=== PATIENT | male | born 1940 | race Caucasian/White ===

== ENCOUNTER 2021-10-07 12:19 | Outpatient (CLI) | payer MEDICARE, OTHER, SELFPAY ==
--- NOTE | 2021-10-07 12:31 | CT_ITS ---
WS: [id number] CTA OF THE CHEST WITH PULMONARY EMBOLISM PROTOCOL TECHNIQUE: High-resolution contrast enhanced CTA of the chest with coronal and sagittal reformatted i mages with pulmonary embolism protocol. MIP images are also reviewed. CLINICAL INFORMATION: 2019 NOVEL CORONAVIRUS DZ/COUGH/ELEVATED D DIMER COMPARISON: None. DLP: 574.[address] scans at [facility] use at least one of these dose optimization techniques: automated e xposure control; mA and/or kV adjustment per patient size (includes targeted exams where dose is matc hed to clinical indication); or iterative reconstruction. FINDINGS: Proximal main pulmonary arteries are normal. Normal segmental and subsegmental pulmonary arteries. No evidence of pulmonary embolus. No evidence of pulmonary embolus. Normal caliber thoracic aorta. Aort ic calcification. Sternotomy. CABG. Moderate chronic emphysematous changes. Patchy subpleural infiltr ates in both upper lower lobes right greater than left suspicious for COVID 19 Pneumonia pneumonia gi shanthi clinical history. No significant pleural fluid. No mediastinal or hilar lymphadenopathy. Small esophageal hiatal hernia. 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 Hypertrophic changes thoracic spine with ankylosis. CT/CT angio chest PE protcl [id number] IMPRESSION: 1. Proximal main pulmonary arteries are normal. No evidence of pulmonary embol us. 2. Bilateral patchy right greater than left subpleural infiltrates suspicious for COVID 19 Pneumonia given clinical history. 3. No significant pleural fluid. 4. Prior sternotomy with CABG. 5. Left adrenal fatty lesion compatible with myelolipoma measuring 3.1 CM. 6. Small esophageal hiatal hernia.
[2021-10-07 14:11] LABS: Blood Urea Nitrogen 30 mg/dL (8-23)
[2021-10-07] MEDS: iodixanol 320 mg/mL 100mL Btl IV (14:25)
== END 2021-10-07 12:20 | disposition home or self-care (01) ==
LOC: RAD 12:24
PROVIDERS: Visit Provider Physician Assistant Medical
DX: U07.1 COVID-19 (principal); R05.9 Cough, unspecified; R79.89 Other specified abnormal findings of blood chemistry; K44.9 Diaphragmatic hernia without obstruction or gangrene; Z95.1 Presence of aortocoronary bypass graft
CPT/HCPCS: 36415; 71275; 82565; 84520

== ENCOUNTER 2021-12-31 08:51 | Outpatient (CLI) | payer MEDICARE, OTHER, SELFPAY ==
--- NOTE | 2021-12-31 09:06 | MM_ITS ---
WS: [id number] DIAGNOSTIC BILATERAL DIGITAL MAMMOGRAM WITH CAD Bilateral breast ultrasound, limited. HISTORY: RT BREAST LUMP, 81-year-old male. COMPARISON: None available. TECHNIQUE: Bilateral craniocaudad, mediolateral oblique, and mediolateral views are submitted. Spot c ompression LEFT MLO and RIGHT CC. Computer aided detection utilized. Breast composition: The breasts are almost entirely fatty. Increased density posterior to the RIGHT n ipple most typical for gynecomastia. Best seen on the LEFT MLO projection is an area of spiculation a nd increased density just posterior to the LEFT nipple. This is probably an additional area of gyneco mastia. No suspicious calcifications. No nipple retraction. Bilateral breast ultrasound, limited. RIGHT breast: Dendritic like extensions and hypoechoic mass posterior to the RIGHT nipple corresponds to the mammographic and palpable abnormality. Mild increased vascularity centrally. Hypoechoic area measures 1.8 x 2.8 x 0.8 cm. LEFT breast: Smaller similar hypoechoic area with fingerlike extensions posterior to the LEFT nipple measures 1.2 x 1.2 x 0.7 cm. No increased vascularity. MM/[place] [id number] IMPRESSION: BI-RADS: 2-Benign FOLLOW UP: See Report Imaging findings are most consistent with bilateral gynecomastia, RIGHT greater than LEFT.
== END 2021-12-31 08:52 | disposition home or self-care (01) ==
PROVIDERS: Visit Provider Family Medicine
DX: N63.10 Unspecified lump in the right breast, unspecified quadrant (principal)
CPT/HCPCS: 76642; 77066

== ENCOUNTER 2022-03-23 19:44 | Emergency (ER) | payer MEDICARE, OTHER, SELFPAY ==
--- NOTE | 2022-03-23 19:51 | XRR_ITS ---
PROCEDURE INFORMATION: Exam: XR Chest Exam date and time: 03/23/2022 9:45 PM Age: 82 years old Clinical indication: Sternal or substernal pain; Prior surgery; Surgery date: 6+ months; Surgery type: Quadruple bypass; Additional info: Cp TECHNIQUE: Imaging protocol: XR of the chest. Views: 1 view. COMPARISON: CT angio chest PE protcl [id number] 10/07/2021 2:21 PM FINDINGS: Lungs: Visualized portions of the lungs are clear. Pleural spaces: Unremarkable. No pleural effusion. No pneumothorax. Heart/Mediastinum: Heart is within normal limits of size. Bones/joints: Sternotomy wires and mediastinal surgical clips are present, consistent with previous coronary arterial bypass grafting. XR/XR chest 1V portable [id number] IMPRESSION: No acute infiltrate.
[2022-03-23 19:54] VITALS: BP 125/80; PULSE 69; RESP 18; TEMP 36.5; O2SAT 98; BMI 27.2
--- NOTE | 2022-03-23 20:35 | PC.NURSE ---
upset because pt did not go straight back to the room explained to that we currently have no room the doctor is aware of the pt has looked at the EKG ordered lab that has been drawn now waiting on room
[2022-03-23 20:43] LABS: Basophils % 0.2 %; Eosinophils # 0.1 10^3/uL (0.0-0.8); Eosinophils % 1.3 %; Hematocrit 49.6 % (42.0-52.0); Hemoglobin 16.7 g/dL (11.7-16.6); Lymphocytes # 0.9 10^3/uL (0.8-4.8); Lymphocytes % 10.5 %; Mean Corpuscular HGB Conc 33.7 g/dL (30.0-36.0); Mean Corpuscular Hemoglobin 31.6 pg (28.0-34.0); Mean Corpuscular Volume 93.9 fl (80-94); Mean Platelet Volume 10.1 fL (7.4-10.4); Monocytes # 0.6 10^3/uL (0.2-0.9); Monocytes % 7.6 %; Neutrophils % 79.9 %; Nucleated Red Blood Cells % 0 %; Platelet Count 220 10^3/cmm (130-400); Red Blood Count 5.28 10^6/uL (4.1-5.3); Red Cell Distribution Width 13.6 % (12.1-15.1); White Blood Count 8.3 10^3/uL (4.0-10.0)
[2022-03-23 20:50] LABS: INR 1.06 (0.8-1.2)
[2022-03-23 21:06] LABS: Alanine Aminotransferase 37 U/L (0-41); Albumin Level 4.2 g/dL (3.5-5.2); Alkaline Phosphatase 53 IU/L (40-130); Anion Gap 15.8 (5-19); Aspartate Amino Transferase 22 U/L (0-40); Blood Urea Nitrogen 24 mg/dL (8-23); Calcium 10.6 mg/dL (8.5-10.5); Carbon Dioxide 18 mmol/L (22-29); Chloride 108 mmol/L (98-107); Creatine Phosphokinase 25 U/L (39-308); Globulin 2.8 g/dL (1.3-4.6); Glucose 139 mg/dL (65-115); NT Pro B Type Natriuretic Pept 88 pg/mL (0-450); Osmolality Calculated 292 mOsm/kg (285-295); Potassium 3.8 mmol/L (3.5-5.1); Sodium 138 mmol/L (136-145); Total Bilirubin 0.6 mg/dL (0.15-1.2)
--- NOTE | 2022-03-23 21:20 | ED_ITS ---
Documented by User: SAMY Quezada 03/24/22 03:42 HPI - Chest Pain General: Chief Complaint: Chest Pain Stated Complaint: chest pains Time Seen by Provider: 03/23/22 21:02 History of Present Illness: Patient is an 82-year-old male who comes to the ED with chest pain. Patient has an extensive heart history and has had 13 stents placed and approximately a year and a half ago had a quadruple bypass done. His chest pain started this morning when he got up to go to the bathroom. His chest pain improves when he is at rest but anytime he gets up and ambulates his chest pain comes back. He took 2 doses of nitro while at home today and it did improve his chest pain. His chest pain located on the left side and he rates it a 5 out of 10 currently. Patient is on 2 blood thinners and takes a daily baby aspirin. Endorses some shortness of breath. Associated symptoms: Reports dyspnea; Deny abdominal pain, fever(s), nausea, palpitations or vomiting Review of Systems Const: Denies: fever(s), chills or fatigue Eyes: Denies: change in vision or eye discomfort ENMT: Denies: throat pain, odynophagia, nasal discharge or nasal congestion Card: Reports: chest pain; Denies: palpitations, edema, swelling of feet/ankles, dyspnea on exertion or orthopnea Resp: Reports: dyspnea; Denies: productive cough or non-productive cough GI: Denies: abdominal pain, nausea, vomiting, diarrhea, constipation or hematochezia : Denies: flank pain, difficulty urinating, dysuria or hematuria Musc: Denies: neck pain, back pain or extremity swelling Skin/Breast: Denies: rash or new lesions Neuro: Denies: headache(s), numbness in extremities or weakness in extremities PFS ED PFSH: Medical History (Updated 03/24/22 @ 00:25 by Migue Forte DO) ACS (acute coronary syndrome) Surgical History (Updated 03/23/22 @ 21:25 by SAMY Quezada) H/O heart artery stent History of quadruple bypass Physical Exam Const: COMMON NORMALS: patient oriented x3 and alert GENERAL APPEARANCE: cooperative HENMT: COMMON NORMALS: normocephalic HEAD & SCALP: normocephalic MOUTH: Normal oral and palatal mucosa present THROAT: posterior oropharynx normal and uvula midline Eye: COMMON NORMALS: Equal, round and reactive pupils present PUPIL: Yes Equal, round and reactive pupils present Neck/C-Spine: COMMON NORMALS: supple GENERAL: Yes normal visual inspection Resp: COMMON NORMALS: normal respiratory effort, No retractions, No use of accessory muscles and clear to auscultation bilaterally AUSCULTATION: clear to auscultation bilaterally Cardio: COMMON NORMALS: regular rate, regular rhythm, S1 normal heart sound present, S2 normal heart sound present, No gallops present (Cardio), No clicks present (Cardio), No murmurs present (Cardio) and Peripheral pulses 2+ throughout RATE: regular rate RHYTHM: regular rhythm HEART SOUNDS: S1 normal heart sound present and S2 normal heart sound present PERIPHERAL PULSES: Peripheral pulses 2+ throughout GI: COMMON NORMALS: Normal to inspection, nondistended, normoactive bowel sounds present, Soft to palpation, non-tender and no masses PALPATION: Yes Soft to palpation : COMMON NORMALS: Yes no CVA tenderness BLADDER/KIDNEY EXAM: Yes no CVA tenderness Back/Pelvis: COMMON NORMALS: no CVA tenderness Extremity: COMMON NORMALS: normal to inspection and no pedal edema Neuro: COMMON NORMALS: patient oriented x3 and moves all extremities SENSORIUM/ORIENTATION: Yes alert Skin: GENERAL SKIN EXAM: dry skin Course Vital Signs: Vital signs: Vital Signs Temperature 97.7 F 03/23/22 19:54 Pulse Rate 63 03/24/22 01:00 Respiratory Rate 16 03/24/22 01:00 Blood Pressure 137/79 03/24/22 01:00 Pulse Oximetry 97 03/24/22 01:00 MDM - Chest Pain Lab Data I reviewed the patient's lab results. : 03/23/22 20:22 03/23/22 20:22 Radiology Impressions Chest X-Ray 03/23/22 19:51 IMPRESSION: No acute infiltrate. Laboratory Results WBC 8.3 10^3/uL (4.0-10.0) 03/23/22 20:22 RBC 5.28 10^6/uL (4.1-5.3) 03/23/22 20:22 Hgb 16.7 g/dL (11.7-16.6) H 03/23/22 20:22 Hct 49.6 % (42.0-52.0) 03/23/22: MCV 93.9 fl (80-94) 03/23/22: MCH 31.6 pg (28.0-34.0) 03/23/22: MCHC 33.7 g/dL (30.0-36.0) 03/23/22 RDW 13.6 % (12.1-15.1) 03/23/22: Plt Count 220 10^3/cmm (130-400) 03/23/22 MPV 10.1 fL (7.4-10.4) 03/23/22: Neut % (Auto) 79.9 % 03/23/22: Lymph % (Auto) 10.5 % 03/23/22 Colbert % (Auto) 7.6 % 03/23/22 Eos % (Auto) 1.3 % 03/23/22 Baso % (Auto) 0.2 % 03/23/22 Neut # (Auto) 6.60 10^3/uL (1.8-7.7) 03/23/22 Lymph # (Auto) 0.9 10^3/uL (0.8-4.8) 03/23/22: Colbert # (Auto) 0.6 10^3/uL (0.2-0.9) 03/23/22 Eos # (Auto) 0.1 10^3/uL (0.0-0.8) 03/23/22 Baso # (Auto) 0.0 10^3/uL (0.0-0.1) 03/23/22 Nucleated RBC % (auto) 0 % 03/23/22 Nucleated RBCs # 0.0 /100WBC 03/23/22 PT 14.10 SECONDS (12.1-14.9) 03/23/22 INR 1.06 (0.8-1.2) 03/23/22 APTT 28.0 SECONDS (23.9-36.7) 03/23/22: Sodium 138 mmol/L (136-145) 03/23/22 Potassium 3.8 mmol/L (3.5-5.1) 03/23/22 20: Chloride 108 mmol/L (98-107) H 03/23/22 20: Carbon Dioxide 18 mmol/L (22-29) L 03/23/22 20: Anion Gap 15.8 (5-19) 03/23/22 20: BUN 24 mg/dL (8-23) H 03/23/22 20: Creatinine 1.5 mg/dL (0.7-1.2) H 03/23/22 20: GFR Calculation Not Reportable 03/23/22 20: Glucose 139 mg/dL (65-115) H 03/23/22 20: Calculated Osmolality 292 mOsm/kg (285-295) 03/23/22: Calcium 10.6 mg/dL (8.5-10.5) H 03/23/22 20: Total Bilirubin 0.6 mg/dL (0.15-1.2) 03/23/22: AST 22 U/L (0-40) 03/23/22: ALT 37 U/L (0-41) 03/23/22 20:22 Alkaline Phosphatase 53 IU/L (40-130) 03/23/22 20: Creatine Kinase 25 U/L (39-308) L 03/23/22 20:22 Troponin T Baseline 13 ng/L (0-15) 03/23/22 20: Troponin T 120 Minute 13.46 ng/L (0-15) 03/23/22 22:17 Delta Troponin T 0.46 ABS# (0-10) 03/23/22 22:17 NT-Pro-B Natriuret Pep 88 pg/mL (0-450) 03/23/22 20:22 Total Protein 7.0 g/dL (6.6-8.7) 03/23/22 20: Albumin 4.2 g/dL (3.5-5.2) 03/23/22: Globulin 2.8 g/dL (1.3-4.6) 03/23/22 20:22 Discharge Plan Discharge Patient Disposition: Home Clinical Impression: Chest pain, Unstable angina pectoris Prescriptions: New isosorbide mononitrate 30 mg tablet extended release 24 hr 30 mg PO BID Qty: 60 0RF Discharge Orders: Discharge ED (Routine); Ordered 03/24/22 Ordered By: Migue Forte Discharge Diet: Advance as tolerated Discharge Activity: Limit activity as instructed Patient Instructions: Angina (ED), Chest Pain (ED) Activity Restrictions/Additional Instructions: Fill your prescription tomorrow as instructed. Return immediately to the ER for any return of chest pain. Return also for shortness of breath, mental status changes, fever, any other concerning symptoms. Check your blood pressure twice daily for the first few days on medication. Call your manager corporate tomorrow, let them know you were seen here, as they may want to see you in clinic. Our briefcase sewer will call as well, to try to make you an appointment and send records. Coding Level of Care Code ED Auto Wheel Alignment Specialist for Chg Fwd Exam Comprehensive Documented by User: Migue Forte DO 03/24/22 03:05 HPI - Chest Pain General: Chief Complaint: Chest Pain Stated Complaint: chest pains Time Seen by Provider: 03/23/22 21:02 REPLACED BY [facility] ED PFSH: Medical History (Updated 03/24/22 @ 00:25 by Migue Forte DO) ACS (acute coronary syndrome) Surgical History (Updated 03/23/22 @ 21:25 by SAMY Quezada) H/O heart artery stent History of quadruple bypass Course Vital Signs: Vital signs: Vital Signs Temperature 97.7 F 03/23/22 19:54 Pulse Rate 63 03/24/22 01:00 Respiratory Rate 16 03/24/22 01:00 Blood Pressure 137/79 03/24/22 01:00 Pulse Oximetry 97 03/24/22 01:00 MDM - Chest Pain Medical Decision Making This patient was originally seen by Mr. Cyndi PA-C.? I agree with his history, evaluation, and treatment. 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 He received a stent to the RCA with 400% occlusion a couple of weeks ago. This was at [facility] in [place]. He had multiple stents, 13 and total he says, and a 4x bypass graft 15 months ago. He has been told that there is no more operative intervention for him coronary disease fernandez. His EKG shows sinus bradycardia with a normal axis. Intervals are normal. Rate is [address] there is no acute ST elevation or depression present. His troponins are negative x2 at 0 and 2 hours. His pain is gone after morphine. He feels a slight pressure in his chest only, which he states that he usually has. By history, this patient could be admitted. He wishes to go home. He is only on 30 mg of isosorbide daily. We will increase his dose to 30 twice a day, as he seems to get pain or pressure in the afternoon more so. He will get 1 dose tonight. He will check his pressure twice daily. He will call his manager corporate in the morning. He will be allowed home. Lab Data : 03/23/22 20:22 03/23/22 20:22 Radiology Impressions Chest X-Ray 03/23/22 19:51 IMPRESSION: No acute infiltrate. Laboratory Results WBC 8.3 10^3/uL (4.0-10.0) 03/23/22 20: RBC 5.28 10^6/uL (4.1-5.3) 03/23/22 20: Hgb 16.7 g/dL (11.7-16.6) H 03/23/22 20:22 Hct 49.6 % (42.0-52.0) 03/23/22 20: MCV 93.9 fl (80-94) 03/23/22: MCH 31.6 pg (28.0-34.0) 03/23/22 20: MCHC 33.7 g/dL (30.0-36.0) 03/23/22 20: RDW 13.6 % (12.1-15.1) 03/23/22 20: Plt Count 220 10^3/cmm (130-400) 03/23/22 20: MPV 10.1 fL (7.4-10.4) 03/23/22 20: Neut % (Auto) 79.9 % 03/23/22 20: Lymph % (Auto) 10.5 % 03/23/22 20:22 Colbert % (Auto) 7.6 % 03/23/22 20:22 Eos % (Auto) 1.3 % 03/23/22 20: Baso % (Auto) 0.2 % 03/23/22 20: Neut # (Auto) 6.60 10^3/uL (1.8-7.7) 03/23/22 20: Lymph # (Auto) 0.9 10^3/uL (0.8-4.8) 03/23/22 20: Colbert # (Auto) 0.6 10^3/uL (0.2-0.9) 03/23/22: Eos # (Auto) 0.1 10^3/uL (0.0-0.8) 03/23/22: Baso # (Auto) 0.0 10^3/uL (0.0-0.1) 03/23/22: Nucleated RBC % (auto) 0 % 03/23/22 Nucleated RBCs # 0.0 /100WBC 03/23/22 20: PT 14.10 SECONDS (12.1-14.9) 03/23/22: INR 1.06 (0.8-1.2) 03/23/22: APTT 28.0 SECONDS (23.9-36.7) 03/23/22 20: Sodium 138 mmol/L (136-145) 03/23/22 20: Potassium 3.8 mmol/L (3.5-5.1) 03/23/22: Chloride 108 mmol/L (98-107) H 03/23/22 20: Carbon Dioxide 18 mmol/L (22-29) L 03/23/22 20: Anion Gap 15.8 (5-19) 03/23/22 20: BUN 24 mg/dL (8-23) H 03/23/22 20: Creatinine 1.5 mg/dL (0.7-1.2) H 03/23/22 20:22 GFR Calculation Not Reportable 03/23/22 20: Glucose 139 mg/dL (65-115) H 03/23/22 20: Calculated Osmolality 292 mOsm/kg (285-295) 03/23/22 20:22 Calcium 10.6 mg/dL (8.5-10.5) H 03/23/22 20:22 Total Bilirubin 0.6 mg/dL (0.15-1.2) 03/23/22 20:22 AST 22 U/L (0-40) 03/23/22 20:22 ALT 37 U/L (0-41) 03/23/22 20:22 Alkaline Phosphatase 53 IU/L (40-130) 03/23/22 20:22 Creatine Kinase 25 U/L (39-308) L 03/23/22 20:22 Troponin T Baseline 13 ng/L (0-15) 03/23/22 20: Troponin T 120 Minute 13.46 ng/L (0-15) 03/23/22 22:17 Delta Troponin T 0.46 ABS# (0-10) 03/23/22 22:17 NT-Pro-B Natriuret Pep 88 pg/mL (0-450) 03/23/22 20: Total Protein 7.0 g/dL (6.6-8.7) 03/23/22 20: Albumin 4.2 g/dL (3.5-5.2) 03/23/22 20: Globulin 2.8 g/dL (1.3-4.6) 03/23/22 20:22 Discharge Plan Discharge Patient Disposition: Home Clinical Impression: Chest pain, Unstable angina pectoris Prescriptions: New isosorbide mononitrate 30 mg tablet extended release 24 hr 30 mg PO BID Qty: 60 0RF Discharge Orders: Discharge ED (Routine); Ordered 03/24/22 Ordered By: Migue Forte Discharge Diet: Advance as tolerated Discharge Activity: Limit activity as instructed Patient Instructions: Angina (ED), Chest Pain (ED) Activity Restrictions/Additional Instructions: Fill your prescription tomorrow as instructed. Return immediately to the ER for any return of chest pain. Return also for shortness of breath, mental status changes, fever, any other concerning symptoms. Check your blood pressure twice daily for the first few days on medication. Call your manager corporate tomorrow, let them know you were seen here, as they may want to see you in clinic. Our briefcase sewer will call as well, to try to make you an appointment and send records. Coding Level of Care Code ED Auto Wheel Alignment Specialist for Catie Fwd Exam Comprehensive
[2022-03-23 21:24] LABS: Troponin(5th) Baseline 13 ng/L (0-15)
[2022-03-23 21:30] VITALS: BP 139/85; PULSE 63; RESP 16; O2SAT 96
[2022-03-23] MEDS: ondansetron 2 mg/ML SDV 2 mL 4 MG IVP (21:31)
[2022-03-23 21:32] VITALS: RESP 16; O2SAT 96
[2022-03-23] MEDS: morphine 4 mg/mL SDV 1 mL IVP (21:32)
--- NOTE | 2022-03-23 21:51 | ECG_ITS ---
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 Measurements Intervals [place] Rate: 55 P: 113 PA: 202 QRS: -19 QRSD: 107 T: 69 QT: 429 QTc: 413 Interpretive Statements SINUS BRADYCARDIA NONSPECIFIC T-WAVE ABNORMALITY No previous ECG available for comparison Electronically Signed On 03-24-2022 17:43:25 CDT by Elvia Robledo M.D. [id number]
[2022-03-23 22:33] VITALS: BP 125/76; PULSE 59; RESP 15; O2SAT 95
[2022-03-23 22:45] LABS: Troponin 5 2HR 13.46 ng/L (0-15)
[2022-03-23 22:46] LABS: Troponin 5 2HR Delta 0.46 ABS# (0-10)
[2022-03-23 23:00] VITALS: BP 127/77; PULSE 57; RESP 14; O2SAT 96
[2022-03-23 23:30] VITALS: BP 123/75; PULSE 60; RESP 14; O2SAT 96
[2022-03-24] VITALS: BP 147/83; PULSE 61; RESP 15; O2SAT 96
[2022-03-24] MEDS: isosorbide mononitrate ER 30 mg Tablet PO (00:40)
[2022-03-24 01:00] VITALS: BP 137/79; PULSE 63; RESP 16; O2SAT 97
--- NOTE | 2022-03-31 13:43 | DCPLANNER ---
microbiology manager called [facility] to ensure that an appointment had been scheduled for patient. microbiology manager was told that patient has an appointment with a [place] regional sales manager for
== END 2022-03-24 00:56 | disposition home or self-care (01) ==
PROVIDERS: Emergency Provider Emergency Medicine
DX: I25.110 Atherosclerotic heart disease of native coronary artery with unstable angina pectoris (principal); Z95.1 Presence of aortocoronary bypass graft; Z95.5 Presence of coronary angioplasty implant and graft
CPT/HCPCS: 36415; 71045; 80053; 82550; 83880; 84484; 85025; 85610; 85730; 93005; 96374; 96375; 99284; J2270; J2405

== ENCOUNTER 2022-04-06 19:19 | Emergency (ER) | payer MEDICARE, OTHER, SELFPAY ==
--- NOTE | 2022-04-06 19:24 | XRR_ITS ---
PROCEDURE INFORMATION: Exam: XR Chest Exam date and time: 04/06/2022 7:55 PM Age: 82 years old Clinical indication: Pain; Left-sided; Prior surgery; Surgery date: 6+ months; Surgery type: Open heart; Additional info: Cp TECHNIQUE: Imaging protocol: XR of the chest. Views: 1 view. COMPARISON: CR (CHEST, ) 03/23/2022 9:45 PM FINDINGS: Lungs: Minimal curvilinear densities at the lung bases are most consistent with scarring and/or atelectasis. Pleural spaces: Unremarkable. No pleural effusion. No pneumothorax. Heart/Mediastinum: Unremarkable. No cardiomegaly. Bones/joints: There are posterior sternotomy changes and postoperative changes overlying the mediastinum. XR/XR chest 1V portable [id number] IMPRESSION: No evidence for acute cardiopulmonary disease.Non acute findings as described above.
--- NOTE | 2022-04-06 19:27 | ECG_ITS ---
[facility] Test Date: 2022-04-06 Pat Name: Jesus Farias Department: Room: Gender: Male Line Server: : 1940 Requested By: Migue Bishop Order Number: [id number] Lourdes MD: Sajan Gilliland M.D. Measurements Intervals [place] Rate: 72 P: -2 WA: 180 QRS: -28 QRSD: 104 T: 31 QT: 383 QTc: 420 Interpretive Statements SINUS RHYTHM BORDERLINE LEFT AXIS DEVIATION [QRS AXIS < -20] Compared to ECG 03/23/2022 22:51:15 Sinus bradycardia no longer present T-wave abnormality no longer present Electronically Signed On 04-07-2022 19:43:06 CDT by Sajan Gilliland M.D. [id number]
[2022-04-06 19:30] VITALS: BP 151/95; RESP 22; TEMP 36.7; O2SAT 96; BMI 25.8
[2022-04-06 19:37] LABS: Basophils % 0.4 %; Eosinophils # 0.3 10^3/uL (0.0-0.8); Eosinophils % 3.2 %; Hematocrit 48.1 % (42.0-52.0); Hemoglobin 16.8 g/dL (11.7-16.6); Lymphocytes # 0.8 10^3/uL (0.8-4.8); Mean Corpuscular HGB Conc 34.9 g/dL (30.0-36.0); Mean Corpuscular Volume 91.6 fl (80-94); Mean Platelet Volume 10.3 fL (7.4-10.4); Monocytes # 0.7 10^3/uL (0.2-0.9); Monocytes % 8.2 %; Neutrophils # 6.48 10^3/uL (1.8-7.7); Nucleated Red Blood Cells % 0 %; Platelet Count 176 10^3/cmm (130-400); Red Blood Count 5.25 10^6/uL (4.1-5.3); Red Cell Distribution Width 13.4 % (12.1-15.1); White Blood Count 8.3 10^3/uL (4.0-10.0)
[2022-04-06 19:45] VITALS: RESP 16; O2SAT 97
[2022-04-06] MEDS: nitroglycerin 1 gm/inch oint Pkt 1 INCH TOPICAL (19:45)
[2022-04-06] MEDS: aspirin 325 mg Tablet PO (19:45)
[2022-04-06] MEDS: ondansetron 2 mg/ML SDV 2 mL 4 MG IVP (19:45)
[2022-04-06] MEDS: morphine 4 mg/mL SDV 1 mL IVP (19:45)
[2022-04-06 19:59] LABS: Troponin(5th) Baseline 12 ng/L (0-15)
--- NOTE | 2022-04-06 20:08 | W.ED.CHESTPA ---
HPI - Chest Pain General: Chief Complaint: Chest Pain Stated Complaint: CP Time Seen by Provider: 04/06/22 19:24 Source: patient History of Present Illness: 82-year-old gentleman with a history of significant coronary disease. He has 13 stents he says in his heart. He presented 2 weeks ago with chest discomfort, which was resolved in the ER, and he elected to go home. He notes that he had done well until today, around 2 PM, when he began to have chest discomfort. He had just sat down to rest when this happened. He took 1 nitro spray at home with some improvement. He has been taking his Brilinta isosorbide, and other medications appropriately he says. He denies significant cough. He is short of breath. No vomiting. No increasing leg swelling MD complaint: chest pain Pertinent past history: coronary artery disease Onset (ago): hour(s) Timing of current episode: constant Prior episodes: Yes Onset: during rest Pain location: substernal Pain radiation: left arm Quality: tightness and aching Relieving factors: nitroglycerin Exacerbating factors: nothing Associated symptoms: Reports dyspnea; Deny abdominal pain, diaphoresis, fever(s), leg edema, nausea, palpitations or vomiting Treatment prior to arrival: nitroglycerin Review of Systems Const: Denies: fever(s) or diaphoresis Eyes: Denies: change in vision ENMT: Denies: throat pain Card: Reports: chest pain; Denies: palpitations Resp: Reports: dyspnea; Denies: productive cough or non-productive cough GI: Denies: abdominal pain, nausea or vomiting Musc: Denies: neck pain PFSH ED PFSH: Medical History ACS (acute coronary syndrome) Surgical History H/O heart artery stent History of quadruple bypass Physical Exam Const: GENERAL APPEARANCE: cooperative, ill appearing and frail appearing HENMT: COMMON NORMALS: normocephalic, atraumatic and Normal external nose present HEAD & SCALP: normocephalic and atraumatic FACE & SINUS: normal facial exam and face symmetric NOSE: Normal external nose present Eye: COMMON NORMALS: Equal, round and reactive pupils present and EOMs intact bilaterally PUPIL: Yes Equal, round and reactive pupils present Neck/C-Spine: GENERAL: Yes trachea midline Chest: COMMONS NORMALS: normal inspection of the chest Resp: COMMON NORMALS: normal respiratory effort, No use of accessory muscles and clear to auscultation bilaterally AUSCULTATION: clear to auscultation bilaterally Cardio: COMMON NORMALS: regular rate, regular rhythm and Peripheral pulses 2+ throughout RATE: regular rate RHYTHM: regular rhythm PERIPHERAL PULSES: Peripheral pulses 2+ throughout GI: COMMON NORMALS: Normal to inspection, nondistended, normoactive bowel sounds present, Soft to palpation and non-tender PALPATION: Yes Soft to palpation Extremity: COMMON NORMALS: no pedal edema Neuro: DARIO COMA SCALE: document GCS findings Dario coma scale eye opening: Spontaneous [place] coma scale verbal response: Orientated Dario coma scale motor response: Obey commands [place] coma scale total score: 15 Course Vital Signs: Vital signs: Vital Signs Temperature 98.0 F 04/06/22 19:30 Pulse Rate 65 04/06/22 22:02 Respiratory Rate 16 04/06/22 22:02 Blood Pressure 142/82 04/06/22 22:02 Pulse Oximetry 98 04/06/22 22:02 MDM - Chest Pain Medical Decision Making 82-year-old gentleman with multiple interventions in the past for coronary artery disease. He had a recent stent placed, and was told that there were no more interventions possible for his coronary disease, and that medical management was the only main option for him at this point. He comes in with chest discomfort. Its resolved now after Nitropaste, morphine, and Zofran. He had been taking isosorbide daily, and had increased the dosage recently to twice daily although the past couple of days has only had it once daily. Obviously, with his history, he is a candidate for observation admission to rule out further, but wishes to go home again. His 0 and 2-hour troponins are negative. There is no significant delta. His EKG shows no ST changes. His symptoms are resolved. His creatinine is 1.6. His hemoglobin is 17. He was counseled if allowed to go home, to increase his isosorbide to twice daily, once in the morning, and once in the late afternoon or evening. This may help keep his symptoms kristy, as he tends to get chest pain in the afternoon if he is going to get it. He was encouraged to follow-up with his registered nurse first assistant this coming week. Again, he was given the option for admission, but chooses to go home. Lab Data : 04/06/22 19:31 04/06/22 19: Radiology Impressions Chest X-Ray 04/06/22 19: IMPRESSION: No evidence for acute cardiopulmonary disease.Non acute findings as described above. Laboratory Results WBC 8.3 10^3/uL (4.0-10.0) 04/06/22: RBC 5.25 10^6/uL (4.1-5.3) 04/06/22: Hgb 16.8 g/dL (11.7-16.6) H 04/06/22: Hct 48.1 % (42.0-52.0) 04/06/22: MCV 91.6 fl (80-94) 04/06/22: MCH 32.0 pg (28.0-34.0) 04/06/22: MCHC 34.9 g/dL (30.0-36.0) 04/06/22: RDW 13.4 % (12.1-15.1) 04/06/22: Plt Count 176 10^3/cmm (130-400) 04/06/22: MPV 10.3 fL (7.4-10.4) 04/06/22 19: Neut % (Auto) 78.0 % 04/06/22: Lymph % (Auto) 10.0 % 04/06/22: Gilliam % (Auto) 8.2 % 04/06/22: Eos % (Auto) 3.2 % 04/06/22: Baso % (Auto) 0.4 % 04/06/22: Neut # (Auto) 6.48 10^3/uL (1.8-7.7) 04/06/22: Lymph # (Auto) 0.8 10^3/uL (0.8-4.8) 04/06/22: Gilliam # (Auto) 0.7 10^3/uL (0.2-0.9) 04/06/22: Eos # (Auto) 0.3 10^3/uL (0.0-0.8) 04/06/22 19:31 Baso # (Auto) 0.0 10^3/uL (0.0-0.1) 04/06/22 19:31 Nucleated RBC % (auto) 0 % 04/06/22 19:31 Nucleated RBCs # 0.0 /100WBC 04/06/22 19:31 Sodium 136 mmol/L (136-145) 04/06/22 19:31 Potassium 4.1 mmol/L (3.5-5.1) 04/06/22 19:31 Chloride 105 mmol/L (98-107) 04/06/22 19:31 Carbon Dioxide 19 mmol/L (22-29) L 04/06/22 19:31 Anion Gap 16.1 (5-19) 04/06/22 19:31 BUN 23 mg/dL (8-23) 04/06/22 19:31 Creatinine 1.6 mg/dL (0.7-1.2) H 04/06/22 19:31 GFR Calculation Not Reportable 04/06/22 19:31 Glucose 143 mg/dL (65-115) H 04/06/22 19:31 Calculated Osmolality 288 mOsm/kg (285-295) 04/06/22 19:31 Calcium 10.6 mg/dL (8.5-10.5) H 04/06/22 19:31 Total Bilirubin 0.6 mg/dL (0.15-1.2) 04/06/22 19:31 AST 22 U/L (0-40) 04/06/22 19:31 ALT 40 U/L (0-41) 04/06/22 19:31 Alkaline Phosphatase 57 IU/L (40-130) 04/06/22 19:31 Creatine Kinase 24 U/L (39-308) L 04/06/22 19:31 Troponin T Baseline 12 ng/L (0-15) 04/06/22 19:31 Troponin T 120 Minute 11.75 ng/L (0-15) 04/06/22 21:20 Delta Troponin T Not Reportable 04/06/22 21:20 NT-Pro-B Natriuret Pep 91 pg/mL (0-450) 04/06/22 19:31 Total Protein 6.7 g/dL (6.6-8.7) 04/06/22 19:31 Albumin 4.1 g/dL (3.5-5.2) 04/06/22 19:31 Globulin 2.6 g/dL (1.3-4.6) 04/06/22 19:31 Discharge Plan Discharge Patient Disposition: Home Clinical Impression: Chest pain Condition: Stable Prescriptions: No Action isosorbide mononitrate 30 mg tablet extended release 24 hr 30 mg PO BID Qty: 60 0RF Discharge Orders: Discharge ED (Routine); Ordered 04/06/22 Ordered By: Migue Forte Discharge Diet: Advance as tolerated Discharge Activity: Limit activity as instructed Patient Instructions: Chest Pain (ED) Activity Restrictions/Additional Instructions: Return for any recurrence of chest discomfort, significant shortness of breath, fever, any other concerning symptoms. Follow-up with your registered nurse first assistant. Call them Thursday to let them know you were seen here. They may wish to do further testing as an outpatient or make medication changes. For now, consider using the isosorbide mononitrate twice daily as we discussed. 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
[2022-04-06 20:09] LABS: Alanine Aminotransferase 40 U/L (0-41); Albumin Level 4.1 g/dL (3.5-5.2); Alkaline Phosphatase 57 IU/L (40-130); Anion Gap 16.1 (5-19); Aspartate Amino Transferase 22 U/L (0-40); Blood Urea Nitrogen 23 mg/dL (8-23); Calcium 10.6 mg/dL (8.5-10.5); Carbon Dioxide 19 mmol/L (22-29); Chloride 105 mmol/L (98-107); Creatine Phosphokinase 24 U/L (39-308); Globulin 2.6 g/dL (1.3-4.6); Glucose 143 mg/dL (65-115); NT Pro B Type Natriuretic Pept 91 pg/mL (0-450); Osmolality Calculated 288 mOsm/kg (285-295); Potassium 4.1 mmol/L (3.5-5.1); Sodium 136 mmol/L (136-145); Total Bilirubin 0.6 mg/dL (0.15-1.2); Total Protein 6.7 g/dL (6.6-8.7)
[2022-04-06 20:30] VITALS: BP 118/77; PULSE 67; RESP 16; O2SAT 97
--- NOTE | 2022-04-06 21:27 | ECG_ITS ---
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 Measurements Intervals [place] Rate: 63 P: 11 [place]: 194 QRS: -24 QRSD: 102 T: 48 QT: 395 QTc: 407 Interpretive Statements SINUS RHYTHM BORDERLINE LEFT AXIS DEVIATION [QRS AXIS < -20] Compared to ECG 03/23/2022 22:51:15 Sinus bradycardia no longer present T-wave abnormality no longer present Electronically Signed On 04-07-2022 19:45:48 CDT by Sajan Gilliland M.D. [id number]
[2022-04-06 21:40] VITALS: BP 116/83; PULSE 68; RESP 16; O2SAT 98
[2022-04-06 21:41] LABS: Troponin 5 2HR 11.75 ng/L (0-15)
[2022-04-06 22:02] VITALS: BP 142/82; PULSE 65; RESP 16; O2SAT 98
[2022-04-06] MEDS: isosorbide mononitrate ER 30 mg Tablet PO (22:19)
== END 2022-04-06 22:19 | disposition home or self-care (01) ==
PROVIDERS: Emergency Provider Emergency Medicine
DX: R07.9 Chest pain, unspecified (principal); I25.10 Atherosclerotic heart disease of native coronary artery without angina pectoris; Z95.1 Presence of aortocoronary bypass graft; Z95.5 Presence of coronary angioplasty implant and graft
CPT/HCPCS: 71045; 80053; 82550; 83880; 84484; 85025; 93005; 96374; 96375; 99285; J2270; J2405

== ENCOUNTER → 2022-08-19 14:29 | Outpatient (BNVA) | payer MEDICARE, OTHER, SELFPAY | PROVIDERS: Visit Provider Surgery | DX: R22.1 Localized swelling, mass and lump, neck (principal) | CPT/HCPCS: 99203 ==

== ENCOUNTER 2022-08-21 11:12 | Day surgery (SDC) | payer MEDICARE, OTHER, SELFPAY ==
[2022-08-20 13:31] VITALS: BMI 25.8
--- NOTE | 2022-08-20 13:37 | ECG_ITS ---
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 Measurements Intervals [place] Rate: 57 P: 0 [place]: 190 QRS: -34 QRSD: 106 T: 42 QT: 402 QTc: 393 Interpretive Statements SINUS BRADYCARDIA LEFT AXIS DEVIATION [QRS AXIS < -30] Compared to ECG 04/06/2022 21:13:31 Sinus rhythm no longer present Electronically Signed On 08-21-2022 13:01:12 CDT by Elvia Robledo M.D. [id number]
[2022-08-20 13:53] LABS: Basophils % 0.3 %; Eosinophils # 0.1 10^3/uL (0.0-0.8); Eosinophils % 1.8 %; Hematocrit 45.2 % (42.0-52.0); Hemoglobin 15.2 g/dL (11.7-16.6); Lymphocytes # 0.7 10^3/uL (0.8-4.8); Lymphocytes % 11.1 %; Mean Corpuscular HGB Conc 33.6 g/dL (30.0-36.0); Mean Corpuscular Hemoglobin 32.2 pg (28.0-34.0); Mean Corpuscular Volume 95.8 fl (80-94); Mean Platelet Volume 9.9 fL (7.4-10.4); Monocytes # 0.6 10^3/uL (0.2-0.9); Monocytes % 8.8 %; Neutrophils # 5.17 10^3/uL (1.8-7.7); Neutrophils % 77.6 %; Nucleated Red Blood Cells % 0 %; Platelet Count 181 10^3/cmm (130-400); Red Blood Count 4.72 10^6/uL (4.1-5.3); Red Cell Distribution Width 13.5 % (12.1-15.1); White Blood Count 6.7 10^3/uL (4.0-10.0)
--- NOTE | 2022-08-20 14:02 | ANES.PREANE2 ---
Pre-Anesthetic Assessment Height/Weight: Height 1.78 m Weight 81.647 kg Operation Date: 08/21/22 13:15 Proposed Procedures p 93419 excision of lymph node right side neck R22.1(Right) - Yon Dhaliwal DO [facility] anesthetic complications: None Was Beta Yeimy taken within 24 hours: N/A Was Clonidine taken within 24 hours: N/A Social No alcohol and No tobacco Exam alert, oriented x 3, clear to auscultation bilaterally and regular rate & rhythm Airway Mallampati: Class II Dentition: false Pulmonary None reported CV/HEM Coronary Artery Disease and Hypertension Anesthetic Plan ASA status: 3 Anesthesia: General Risk of > 500 ml blood loss (7ml/kg in children): No Medications/Allergies Home Medications Medication Instructions Recorded Confirmed Last Taken Type aspirin 81 mg tablet,delayed 81 mg PO DAILY 08/19/22 08/20/22 08/19/22 History release (Adult Aspirin Regimen) carvedilol 12.5 mg tablet 12.5 mg PO BID 08/19/22 08/20/22 Unknown History hydroxyzine HCl 25 mg tablet 25 mg PO BID PRN Anxiety 08/19/22 08/20/22 Unknown History ticagrelor 90 mg tablet (Brilinta) 90 mg PO BID 08/19/22 08/20/22 08/19/22 History allopurinol 300 mg tablet 150 mg PO DAILY PRN GOUT 08/20/22 08/20/22 Unknown History doxazosin 1 mg tablet 1 mg PO BEDTIME 08/20/22 08/20/22 Unknown History ezetimibe 10 mg tablet (Zetia) 10 mg PO DAILY 08/20/22 08/20/22 Unknown History hydralazine 50 mg tablet 50 mg PO TID 08/20/22 08/20/22 Unknown History isosorbide mononitrate 30 mg 30 mg PO QPM 08/20/22 08/20/22 Unknown History tablet,extended release 24 hr lovastatin 20 mg tablet 20 mg PO QPM 08/20/22 08/20/22 Unknown History omeprazole 20 mg capsule,delayed 20 mg PO DAILY 08/20/22 08/20/22 Unknown History release Allergies Allergy/AdvReac Type Severity Reaction Status Date / Time clopidogrel [From Plavix] Allergy Unknown Verified 08/20/22 13:23 [facility] Anesthesia Medical History ACS (acute coronary syndrome) Anxiety CAD (coronary artery disease) GERD (gastroesophageal reflux disease) Hiatal hernia History of hypertension Osteoporosis Surgical History H/O heart artery stent History of appendectomy History of colonoscopy History of open heart surgery History of quadruple bypass Social History Smoking and tobacco status: never smoked Data Anesthesia : 08/20/22 13:43 08/20/22 13:43 Short CBC 08/20/22 Range/Units 13:43 WBC 6.7 (4.0-10.0) 10^3/uL Hgb 15.2 (11.7-16.6) g/dL Hct 45.2 (42.0-52.0) % MCV 95.8 H (80-94) fl Plt Count 181 (130-400) 10^3/cmm Neut % (Auto) 77.6 % Neut # (Auto) 5.17 (1.8-7.7) 10^3/uL Cardiac Studies: No Data to Display
[2022-08-20 14:11] LABS: Anion Gap 12.2 (5-19); Blood Urea Nitrogen 21 mg/dL (8-23); Calcium 10.1 mg/dL (8.5-10.5); Carbon Dioxide 24 mmol/L (22-29); Chloride 105 mmol/L (98-107); Glucose 139 mg/dL (65-115); Osmolality Calculated 289 mOsm/kg (285-295); Potassium 4.2 mmol/L (3.5-5.1); Sodium 137 mmol/L (136-145)
[2022-08-21] VITALS (11 sets, daily range): BP systolic 128–166; BP diastolic 62–96; PULSE 53–64; RESP 14–18; TEMP 36.2–37.2; O2SAT 93–98
[2022-08-21] MEDS: sodium chloride 0.9% 1,000 ML 30 ML IV (11:49)
--- NOTE | 2022-08-21 14:01 | W.PM.OPSUD ---
Surgery/Procedure H&P Update DATE OF PROCEDURE: August 21, 2022 DATE H&P PERFORMED: 08/19/22 PREOP DIAGNOSIS: Subcutaneous mass right neck PLANNED PROCEDURE: Operation Date: 08/21/22 13:15 Proposed Procedures p 32854 excision of lymph node right side neck R22.1(Right) - Yon Dhaliwal DO
--- NOTE | 2022-08-21 14:10 | P.ANESUD_ITS ---
Pre-Anesthetic Update Pre-Anesthetic Assessment: Date of Surgery/Procedure: 08/21/22 Preop Samia gnosis: Subcutaneous mass right neck Proposed Procedure: Operation Date: 08/21/22 13:15 Proposed Procedures p 91151 excision of lymph node right side neck R22.1(Right) - Yon Dhaliwal, DO Any changes to Pre-Anesthetic Assessment?: No Last Intake: Intake Last Liquid Date 08/20/22 Last Liquid Time 07:30 Last Solid Date 08/20/22 Last Solid Time 18:30 Labs Last 48hrs: Short CBC 08/20/22 Range/Units 13:43 WBC 6.7 (4.0-10.0) 10^3/ uL Hgb 15.2 (11.7-16.6) g/dL Hct 45.2 (42.0-52.0) % MCV 95.8 H (80-94) fl Plt Count 181 (130-400) 10^3/c mm Neut % (Auto) 77.6 % Neut # (Auto) 5.17 (1.8-7.7) 10^3/u L BMP 08/20/22 13:43 Sodium 137 Potassium 4.2 Chloride 105 Carbon Dioxide 24 BUN 21 Creatinine 1.4 H Glucose 139 H Calcium 10.1 Vitals: Temperature 98.9 F 08/21/22 11:46 Temperature Source Temporal Artery S can 08/21/22 11:46 Pulse Rate 64 08/21/22 11:46 Respiratory Rate 18 08/21/22 11:46 Blood Pressure 159/94 08/21/22 11:46 Blood Pressure Marley n 115 08/21/22 11:46 Pulse Oximetry 96 08/21/22 11:46 Oxygen Delivery Me thod 08/21/22 11:46 Exam: Pre-Anes Outpt Exam: alert, oriented x 3, clear to auscultation bilaterally and regular rate & rhythm Cardiac Studies: No Data to Display
[2022-08-21] MEDS: ceFAZolin 2,000 MG in sodium chloride 0.9% (plus) 50 ML 100 MG IV (14:20)
--- NOTE | 2022-08-21 14:47 | PM.OP ---
Operative Report Date of procedure: August 21, 2022 Pre-op diagnosis: Preop Diagnosis Subcutaneous mass right neck Post-op diagnosis: same Procedure done: Excision of subcutaneous mass right neck Specimens removed/disposition: Subcutaneous mass right neck Surgeon: Dr. Yon Dhaliwal DO Anesthesia: General Estimated blood loss (mL): 2 Complications: None apparent Brief History: This is a very pleasant 82-year-old gentleman with a subcutaneous mass of his right neck. He also has multiple similar masses in the left neck and bilateral groins. These are most consistent with lymph nodes. Excision was indicated. Risks and benefits were explained and documented. Procedure: The right neck was inspected prepped and draped in the usual sterile fashion. 2% lidocaine with epinephrine was used to anesthetize the area over the mass. A 15 blade scalpel then used to make an incision 3 cm in length. Incision was carried down to subcutaneous tissue and the specimen was excised with electrocautery and passed off. 3-0 Vicryl was used to approximate the dermis, and 4-0 Vicryl was use to close the skin in a running subcuticular fashion. Hemostasis was noted. Skin glue was used. Patient tolerated the procedure well.
--- NOTE | 2022-08-21 14:50 | SUR.OPER ---
spoke to yaniv in path, notified her of specimen. yaniv stated that all orders are covered in lymph node prep section.
[2022-08-21 16:41] LABS: Cyto Order Verification Order Verified
[2022-08-22 13:02] LABS: Lymphoma Profile (BBPL) See Report
== END 2022-08-21 16:45 | disposition home or self-care (01) ==
PROVIDERS: Anesthesiology; PCP Family Medicine; Visit Provider Surgery
PROC: (CPT 38500; principal; 2022-08-21 13:05)
DX: C91.10 Chronic lymphocytic leukemia of B-cell type not having achieved remission (principal); I25.10 Atherosclerotic heart disease of native coronary artery without angina pectoris; I10 Essential (primary) hypertension; Z79.82 Long term (current) use of aspirin; F41.9 Anxiety disorder, unspecified; K21.9 Gastro-esophageal reflux disease without esophagitis; M81.0 Age-related osteoporosis without current pathological fracture; Z95.5 Presence of coronary angioplasty implant and graft
CPT/HCPCS: 38500; 36415; 80048; 85025; 87015; 87070; 87102; 87116; 87176; 87205; 87206; 87801; 88184; 88185; 88307; 88342; 93005; J1100; J2405; J2704; J3010; J3490; J7030

== ENCOUNTER → 2022-09-02 09:57 | Outpatient (BNVA) | payer MEDICARE, OTHER, SELFPAY | PROVIDERS: PCP Family Medicine; Visit Provider Surgery | DX: Z98.890 Other specified postprocedural states (principal); C91.10 Chronic lymphocytic leukemia of B-cell type not having achieved remission | CPT/HCPCS: 99213 ==

== ENCOUNTER → 2022-11-05 12:38 | Outpatient (BNVA) | payer MEDICARE, OTHER, SELFPAY | PROVIDERS: PCP Family Medicine; Visit Provider Surgery | DX: K40.90 Unilateral inguinal hernia, without obstruction or gangrene, not specified as recurrent (principal) | CPT/HCPCS: 99213 ==

== ENCOUNTER 2022-12-01 06:48 | Day surgery (SDC) | payer MEDICARE, OTHER, SELFPAY ==
[2022-11-28 12:54] VITALS: BMI 25.1
[2022-12-01] VITALS (14 sets, daily range): BP systolic 109–169; BP diastolic 68–89; PULSE 65–71; RESP 12–23; TEMP 36.2–36.9; O2SAT 94–100
--- NOTE | 2022-12-01 07:55 | P.ANESASSM_ITS ---
Pre-Anesthetic Assessment Height/Weight: Height 1.78 m Weight 79.379 kg Temp Pulse Resp BP Pulse Ox O2 Del Method 97.1 F L 69 16 109/72 95 12/01/22 07:30 12/01/22 07:30 12/01/22 07:30 12/01/22 07:30 12/01/22 07:30 12/01/22 07:40 Preop Diagnosis: Right inguinal hernia Operation Date: 12/01/22 08:40 Proposed Procedures p 50185 lap right inguinal hernia repair w/mesh ,K40.90(Right) - Yon Dhaliwal DO Familial anesthetic complications: None Was Beta Yeimy taken within 24 hours: Yes Was Clonidine taken within 24 hours: N/A Last intake: Intake Last Liquid Date 11/30/22 Last Liquid Time 22:30 Last Solid Date 11/30/22 Last Solid Time 19:00 Social No alcohol and No tobacco Exam alert, oriented x 3, clear to auscultation bilaterally and regular rate & rhythm Airway Mallampati: Class II Dentition: false CV/HEM Coronary Artery Disease and Hypertension GI Gastroesophageal Reflux Disease Metabolic Hyperlipidemia [facility] Anesthetic Plan ASA status: 3 Anesthesia: General Risk of > 500 ml blood loss (7ml/kg in children): No Medications/Allergies Home Medications Medication Instructions Recorded Confirmed Last Taken Type aspirin 81 mg tablet,delayed 81 mg PO DAILY 08/19/22 11/28/22 11/28/22 History release (Adult Aspirin Regimen) carvedilol 12.5 mg tablet 12.5 mg PO BID 08/19/22 11/28/22 12/01/22 05:30 History ticagrelor 90 mg tablet (Brilinta) 90 mg PO BID 08/19/22 11/28/22 11/26/22 History allopurinol 300 mg tablet 150 mg PO DAILY PRN GOUT 08/20/22 11/28/22 2 Days Ago History ~11/26/22 doxazosin 1 mg tablet 1 mg PO BEDTIME 08/20/22 11/28/22 3 Days Ago History ~11/25/22 ezetimibe 10 mg tablet (Zetia) 5 mg PO DAILY 08/20/22 11/28/22 11/30/22 History hydralazine 50 mg tablet 50 mg PO TID 08/20/22 11/28/22 12/01/22 05:30 History isosorbide mononitrate 30 mg 30 mg PO QPM 08/20/22 11/28/22 11/30/22 History tablet,extended release 24 hr lovastatin 20 mg tablet 20 mg PO QPM 08/20/22 11/28/22 11/29/22 History omeprazole 20 mg capsule,delayed 20 mg PO DAILY 08/20/22 11/28/22 11/30/22 History release cyclobenzaprine 10 mg tablet 5 mg PO DAILY PRN Spasms 11/28/22 11/28/22 11/29/22 History furosemide 20 mg tablet 20 mg PO DAILY 12/01/22 12/01/22 11/30/22 06:00 History Allergies Allergy/AdvReac Type Severity Reaction Status Date / Time clopidogrel [From Plavix] Allergy Severe ALGY-Hives Verified 11/28/22 12:44 [facility] Anesthesia Medical History ACS (acute coronary syndrome) Anxiety CAD (coronary artery disease) CLL (chronic lymphocytic leukemia) GERD (gastroesophageal reflux disease) Hiatal hernia History of hypertension Osteoporosis Scrotal edema wrong pt Surgical History H/O heart artery stent History of appendectomy History of bunionectomy History of colonoscopy History of excision of mass Excision of subcutaneous mass right neck History of open heart surgery History of quadruple bypass Social History Smoking and tobacco status: never smoked Data Anesthesia Cardiac Studies: No Data to Display
--- NOTE | 2022-12-01 08:06 | W.PM.OPSUD ---
Surgery/Procedure H&P Update DATE OF PROCEDURE: December 01, 2022 DATE H&P PERFORMED: 11/05/22 PREOP DIAGNOSIS: Right inguinal hernia PLANNED PROCEDURE: Operation Date: 12/01/22 08:40 Proposed Procedures p 17406 lap right inguinal hernia repair w/mesh ,K40.90(Right) - Yon Dhaliwal DO
[2022-12-01] MEDS: ceFAZolin 2,000 MG in sodium chloride 0.9% (plus) 50 ML 100 MG IV (08:35)
[2022-12-01] MEDS: sodium chloride 0.9% 1,000 ML 30 ML IV ×2 (08:36→10:18)
[2022-12-01 08:43] LABS: Basophils % 0.3 %; Eosinophils # 0.2 10^3/uL (0.0-0.8); Eosinophils % 2.1 %; Hematocrit 44.2 % (42.0-52.0); Hemoglobin 14.4 g/dL (11.7-16.6); Lymphocytes # 1.2 10^3/uL (0.8-4.8); Lymphocytes % 11.3 %; Mean Corpuscular HGB Conc 32.6 g/dL (30.0-36.0); Mean Corpuscular Hemoglobin 31.6 pg (28.0-34.0); Mean Corpuscular Volume 96.9 fl (80-94); Mean Platelet Volume 10.3 fL (7.4-10.4); Monocytes # 0.9 10^3/uL (0.2-0.9); Monocytes % 8.8 %; Neutrophils # 7.84 10^3/uL (1.8-7.7); Neutrophils % 77.1 %; Nucleated Red Blood Cells % 0 %; Platelet Count 195 10^3/cmm (130-400); Red Blood Count 4.56 10^6/uL (4.1-5.3); Red Cell Distribution Width 13.2 % (12.1-15.1); White Blood Count 10.2 10^3/uL (4.0-10.0)
[2022-12-01 09:02] LABS: Blood Urea Nitrogen 28 mg/dL (8-23); Carbon Dioxide 25 mmol/L (22-29); Chloride 100 mmol/L (98-107); Glucose 111 mg/dL (65-115); Osmolality Calculated 284 mOsm/kg (285-295); Sodium 134 mmol/L (136-145)
[2022-12-01 09:05] LABS: Anion Gap 12.8 (5-19); Potassium 3.8 mmol/L (3.5-5.1)
--- NOTE | 2022-12-01 09:29 | PM.OP ---
Operative Report Date of procedure: December 01, 2022 Pre-op diagnosis: Preop Diagnosis Right inguinal hernia Post-op diagnosis: other (Right femoral and indirect inguinal hernia) Procedure done: Laparoscopic repair of right femoral and indirect inguinal hernias Implants: Extra-large right 3D max Bard mesh Specimens removed/disposition: None Surgeon: Dr. Yon Dhaliwal DO Anesthesia: General Estimated blood loss (mL): 5 Complications: None apparent Brief History: This very pleasant 82-year-old gentleman who presented to my office with a right inguinal hernia. Laparoscopic repair with mesh was indicated. The risks and benefits were explained and documented. Procedure: Patient was wheeled into the operative room and placed on the OR table in a supine position. Abdomen was inspected prepped and draped in usual sterile fashion. Time-out was performed and all present were in agreement. A 15 blade scalpel was used to make 1.2 centimeter incision infraumbilically. Combination of sharp and blunt dissection was performed down to the anterior rectus sheath which was opened sharply. The dissecting balloon was then inserted into the space of Retzius and blown up. We put the camera into the port and identified that we were in the correct space. I then placed 2 5 millimeter trocars suprapubically in the midline. I then used endokitners to bluntly dissect in the space of Retzius out laterally. A right femoral hernia was identified along with an indirect inguinal hernia on the right. Blunt dissection was performed to dissect down the hernia sacs until the vas deferens dove medially and the hernia sac, containing fat was out of the femoral canal. An extra large right inguinal mesh was then placed into the space of Retzius. The mesh was unrolled and tacked once medially at the pubic bone. The mesh laid out nicely over the spermatic cord. I watched the hernia sac remained in place as insufflation was removed. Incisions were closed with 4 O Vicryl in a subcuticular interrupted fashion. Skin glue was applied. Patient tolerated the procedure well.
[2022-12-01] MEDS: fentaNYL 50 mcg/mL INJ 2mL IVP ×2 (09:58→10:09)
--- NOTE | 2022-12-01 10:23 | SUR.PHASEI ---
0951 PT TO PACU 4 PT AWAKES TO VOICE, WITH GOOD RESP NOTED MONITOR SR WITH NO ECTOPY NOTED IV PATENT TO RT FA #[id number] WITH NS 50 MLUP AT KVO RATE. PT C/O OF SHARP PAIN TO LOWER ABDOMEN LINDA AREA AND PT C/O OF NEED TO VOID, PT INFORMED OF BADILLO CATHETER IN OR AND REMOVED PRIOR TO ADMIT TO PACU. PT GIVEN URINAL FOR COMFORT, ABDOMEN SOFT WITH 3 SITES WITH SKIN GLUE D/I , BILAT SCDS ON .PT ORIENTED X 3, VSS. ID BRACELET TO LT WRIST , PT ID'D WITH 2 IDENTIFIERS. 1025 SEE EARLIER PAIN MEDS GIVEN FOR PT C/O OF PAIN, PT ON RA VSS PT STATES PAIN IS BETTER NOW, PT REMAINS AWAKE AND ALERT FACE SCALE 3 PT RATESPAIN AT 5 . PT TRYING TO USE URINAL.
[2022-12-01] MEDS: HYDROcodone-acetaminophen 7.5-325 mg Tablet 1 TAB PO (11:30)
--- NOTE | 2022-12-01 16:25 | ANE.PACU2 ---
Inpatient post-anesthesia follow up: Airway intact: Yes Vital signs: Temperature 98.5 F Pulse Rate 65 Respiratory Rate 16 Blood Pressure 132/68 Pulse Oximetry 95 Oxygen Delivery Me thod Room Air Oxygen Flow Rate 8 Fraction of Inspir ed Oxygen Hydration adequate: Yes Nausea and vomiting: No Pain level: 1 Mental status: Baseline
== END 2022-12-01 11:55 | disposition home or self-care (01) ==
PROVIDERS: PCP Family Medicine; Visit Provider Surgery
PROC: (CPT 49650; principal; 2022-12-01 08:30)
DX: K40.90 Unilateral inguinal hernia, without obstruction or gangrene, not specified as recurrent (principal); I25.10 Atherosclerotic heart disease of native coronary artery without angina pectoris; I10 Essential (primary) hypertension; K21.9 Gastro-esophageal reflux disease without esophagitis; E78.5 Hyperlipidemia, unspecified; C91.10 Chronic lymphocytic leukemia of B-cell type not having achieved remission; Z79.82 Long term (current) use of aspirin; F41.9 Anxiety disorder, unspecified; M81.0 Age-related osteoporosis without current pathological fracture; Z95.5 Presence of coronary angioplasty implant and graft
CPT/HCPCS: 49650; 51702; 80048; 85025; C1781; J0690; J2370; J2704; J2710; J3010; J3490; J7030

== ENCOUNTER → 2022-12-17 14:48 | Outpatient (BNVA) | payer MEDICARE, OTHER, SELFPAY | PROVIDERS: PCP Family Medicine; Visit Provider Surgery | DX: Z98.890 Other specified postprocedural states (principal); Z87.19 Personal history of other diseases of the digestive system | CPT/HCPCS: 99024 ==

== ENCOUNTER → 2023-05-18 11:05 | Outpatient (BNVA) | payer MEDICARE, OTHER, SELFPAY | PROVIDERS: PCP Family Medicine; Visit Provider Podiatrist Foot & Ankle Surgery | DX: L97.512 Non-pressure chronic ulcer of other part of right foot with fat layer exposed (principal); M20.41 Other hammer toe(s) (acquired), right foot; M20.42 Other hammer toe(s) (acquired), left foot; L03.031 Cellulitis of right toe | CPT/HCPCS: 99204 ==

== ENCOUNTER → 2023-05-26 09:23 | Outpatient (BNVA) | payer MEDICARE, OTHER, SELFPAY | PROVIDERS: PCP Family Medicine; Visit Provider Podiatrist Foot & Ankle Surgery | DX: M20.41 Other hammer toe(s) (acquired), right foot (principal); M20.42 Other hammer toe(s) (acquired), left foot; L03.031 Cellulitis of right toe; L85.1 Acquired keratosis [keratoderma] palmaris et plantaris | CPT/HCPCS: 11055; 99213 ==

== ENCOUNTER → 2023-06-30 09:53 | Outpatient (BNVA) | payer MEDICARE, OTHER, SELFPAY | PROVIDERS: PCP Family Medicine; Visit Provider Podiatrist Foot & Ankle Surgery | DX: M20.41 Other hammer toe(s) (acquired), right foot (principal); M20.42 Other hammer toe(s) (acquired), left foot | CPT/HCPCS: 28011; A6219 ==

== ENCOUNTER → 2023-07-07 14:12 | Outpatient (BNVA) | payer MEDICARE, OTHER, SELFPAY | PROVIDERS: PCP Family Medicine; Visit Provider Podiatrist Foot & Ankle Surgery | DX: L97.512 Non-pressure chronic ulcer of other part of right foot with fat layer exposed (principal); M20.41 Other hammer toe(s) (acquired), right foot; M20.42 Other hammer toe(s) (acquired), left foot; L03.031 Cellulitis of right toe | CPT/HCPCS: 99024 ==

== ENCOUNTER → 2023-07-14 12:24 | Outpatient (BNVA) | payer MEDICARE, OTHER, SELFPAY | PROVIDERS: PCP Family Medicine; Visit Provider Dermatology | DX: L82.1 Other seborrheic keratosis (principal); D48.5 Neoplasm of uncertain behavior of skin; L57.0 Actinic keratosis; L72.0 Epidermal cyst; L81.4 Other melanin hyperpigmentation; L57.8 Other skin changes due to chronic exposure to nonionizing radiation; D18.01 Hemangioma of skin and subcutaneous tissue | CPT/HCPCS: 11102; 17000; 17003; 69100; 99203 ==

== ENCOUNTER → 2023-08-19 13:56 | Outpatient (BNVA) | payer MEDICARE, OTHER, SELFPAY | PROVIDERS: PCP Family Medicine; Referring Provider Family Medicine; Visit Provider Specialist | DX: M25.521 Pain in right elbow (principal); M70.21 Olecranon bursitis, right elbow | CPT/HCPCS: 73080; 99203 ==

== ENCOUNTER → 2023-12-14 12:52 | Outpatient (BNVA) | payer MEDICARE, OTHER, SELFPAY | PROVIDERS: PCP Family Medicine; Visit Provider Podiatrist Foot & Ankle Surgery | DX: L60.3 Nail dystrophy (principal); I73.9 Peripheral vascular disease, unspecified; L84 Corns and callosities; C91.10 Chronic lymphocytic leukemia of B-cell type not having achieved remission | CPT/HCPCS: 11056; 11721; 99203 ==

== ENCOUNTER → 2024-02-16 09:23 | Outpatient (BNVA) | payer MEDICARE, OTHER, SELFPAY | PROVIDERS: PCP Family Medicine; Visit Provider Podiatrist Foot & Ankle Surgery | DX: L97.523 Non-pressure chronic ulcer of other part of left foot with necrosis of muscle (principal); I73.9 Peripheral vascular disease, unspecified; C91.10 Chronic lymphocytic leukemia of B-cell type not having achieved remission | CPT/HCPCS: 99214 ==

== ENCOUNTER 2024-02-18 14:11 | Outpatient (CLI) | payer MEDICARE, OTHER, SELFPAY ==
--- NOTE | 2024-02-18 14:45 | MRR_ITS ---
PROCEDURE INFORMATION: Exam: MR Left Lower Extremity Without and With Contrast; Forefoot Exam date and time: 02/18/2024 2:48 PM Age: 83 years old Clinical indication: Other: Surgical planning, to eval wound to bone; Prior surgery; Surgery date: 6+ months; Surgery type: Lt foot TECHNIQUE: Imaging protocol: MR of the left foot without and with contrast. Exam focused on the forefoot. Contrast material: MULTIHANCE; Contrast volume: 17 ml; Contrast route: INTRAVENOUS (IV); COMPARISON: CR XR toe LT min 2V [id number] 02/09/2024 11:09 AM FINDINGS: Bones/joints: There is abnormal bone signal intensity 1st distal phalanx with bony edema and haziness of the marrow fat signal intensity compatible with osteomyelitis. There are moderate to severe degenerative changes of the 1st MTP and 1st interphalangeal joints. There is mild bony reactive edema distal articular surface 1st proximal phalanx without osteomyelitis. No osteomyelitis in the 1st metatarsal or sesamoid bones. No additional bony destruction or osteomyelitis. No acute fracture or dislocation. Soft tissue edema and enhancement of the 1st toe surrounding the distal phalanx and tracking proximally along the flexor tendon to the level of the mid diaphysis 1st proximal phalanx is noted consistent with cellulitis without abscess. There are postoperative changes of 1st metatarsal bunionectomy and osteotomy with screw in the base of the 1st metatarsal diaphysis. There is edema with mild enhancement dorsal to the 5th MTP joint compatible with poor fat saturation or mild cellulitis without osteomyelitis. LIGAMENTS: Collateral ligaments of digits: Unremarkable. No evidence of tear. Lisfranc ligament: Unremarkable. No evidence of tear. TENDONS: Flexor tendons of foot: Unremarkable. No evidence of tear. Extensor tendons of foot: Unremarkable. No evidence of tear. Soft tissues: There is abundant soft tissue edema without enhancement of cellulitis in the forefoot especially over the dorsum of the metatarsals. There is mild edema and enhancement of the skin over the dorsum of the 2nd middle and distal phalanges concerning for cellulitis without abscess or osteomyelitis. MR/MR foot LT wo/w con [id number] IMPRESSION: 1. There is abnormal bone signal intensity 1st distal phalanx with bony edema and haziness of the marrow fat signal intensity compatible with osteomyelitis. There is reactive edema in the distal articular surface 1st proximal phalanx without osteomyelitis. 2. Soft tissue edema and enhancement of the 1st toe surrounding the distal phalanx and tracking proximally along the flexor tendon to the level of the mid diaphysis 1st proximal phalanx is noted consistent with cellulitis without abscess. 3. There is edema with mild enhancement dorsal to the 2nd middle and distal phalanges and the 5th MTP joint compatible with poor fat saturation or mild cellulitis without osteomyelitis or abscess.
[2024-02-18] MEDS: gadobenate dimeglumine 20 mL vial IV (15:26)
== END 2024-02-18 14:12 | disposition home or self-care (01) ==
LOC: RAD 14:12
PROVIDERS: PCP Family Medicine; Visit Provider Podiatrist Foot & Ankle Surgery
DX: L97.523 Non-pressure chronic ulcer of other part of left foot with necrosis of muscle (principal); R60.9 Edema, unspecified
CPT/HCPCS: 73720; A9577

== ENCOUNTER → 2024-02-24 14:34 | Outpatient (BNVA) | payer MEDICARE, OTHER, SELFPAY | PROVIDERS: PCP Family Medicine; Visit Provider Podiatrist Foot & Ankle Surgery | DX: L97.524 Non-pressure chronic ulcer of other part of left foot with necrosis of bone (principal) | CPT/HCPCS: 11044; 87070; 87075; 87205 ==

== ENCOUNTER → 2024-03-10 11:00 | Outpatient (BNVA) | payer MEDICARE, OTHER, SELFPAY | PROVIDERS: PCP Family Medicine; Visit Provider Podiatrist Foot & Ankle Surgery | DX: I73.9 Peripheral vascular disease, unspecified (principal); C91.10 Chronic lymphocytic leukemia of B-cell type not having achieved remission; L97.524 Non-pressure chronic ulcer of other part of left foot with necrosis of bone | CPT/HCPCS: 99213 ==

== ENCOUNTER → 2024-04-18 10:11 | Outpatient (BNVA) | payer MEDICARE, OTHER, SELFPAY | PROVIDERS: PCP Family Medicine; Visit Provider Podiatrist Foot & Ankle Surgery | DX: I73.9 Peripheral vascular disease, unspecified (principal); C91.10 Chronic lymphocytic leukemia of B-cell type not having achieved remission | CPT/HCPCS: 99213 ==

== ENCOUNTER 2024-07-05 16:45 | Inpatient (IN) | payer MEDICARE, OTHER, SELFPAY ==
[2024-07-05] VITALS (33 sets, daily range): BP systolic 84–128; BP diastolic 56–77; PULSE 71–93; RESP 9–22; TEMP 36.8; O2SAT 93–100
--- NOTE | 2024-07-05 17:09 | PC.NURSE ---
DR LIU [facility], PAGER # [phone]
--- NOTE | 2024-07-05 17:10 | CTR_ITS ---
PROCEDURE INFORMATION: Exam: CT Chest Without Contrast; Diagnostic Exam date and time: 07/05/2024 5:41 PM Age: 84 years old Clinical indication: Condition or disease; Cancer; Other: Hodgkins lymphoma; Other: Poor kidney function TECHNIQUE: Imaging protocol: Diagnostic computed tomography of the chest without contrast. Radiation optimization: All CT scans at this facility use at least one of these dose optimization techniques: automated exposure control; mA and/or kV adjustment per patient size (includes targeted exams where dose is matched to clinical indication); or iterative reconstruction. COMPARISON: CT angio chest PE protcl [id number] 10/07/2021 2:21 PM RADIATION DOSE METRICS: Total DLP (mGy-cm): 784 FINDINGS: Lungs: Mild atelectasis versus scarring within the right middle lobe. No focal consolidations. Pleural spaces: Unremarkable. No pneumothorax. No pleural effusion. Heart: Unremarkable. No cardiomegaly. No pericardial effusion. Coronary arteries: Coronary artery calcifications. Lymph nodes: Prominent mediastinal and left supraclavicular lymph nodes. For example a right paratracheal lymph node measures 3.0 x 2.8 cm in long and short axis (series 3, image 22). Vasculature: Unremarkable. No aortic aneurysm. Bones/joints: Median sternotomy wires. Moderate spondylosis. Soft tissues: Unremarkable. PROCEDURE INFORMATION: Exam: CT Abdomen And Pelvis Without Contrast Exam date and time: 07/05/2024 5:41 PM Age: 84 years old Clinical indication: Condition or disease; Cancer; Other: Hodgkins lymphoma; Other: Poor kidney function TECHNIQUE: Imaging protocol: Computed tomography of the abdomen and pelvis without contrast. Radiation optimization: All CT scans at this facility use at least one of these dose optimization techniques: automated exposure control; mA and/or kV adjustment per patient size (includes targeted exams where dose is matched to clinical indication); or iterative reconstruction. COMPARISON: CT angio chest PE protcl [id number] 10/07/2021 2:21 PM RADIATION DOSE METRICS: Total DLP (mGy-cm): 784 FINDINGS: Liver: Normal. No mass. Gallbladder and biliary ducts: The gallbladder is physiologically distended. No gallstones seen. Pancreas: Normal. No ductal dilation. Spleen: Normal. No splenomegaly. Adrenal glands: Unchanged 3.5 cm fat attenuating left adrenal lesion likely representing a myelolipoma. Kidneys and ureters: Nonspecific bilateral perinephric fat stranding. No hydronephrosis bilaterally. Stomach and bowel: Unremarkable. No obstruction. No mucosal thickening. Appendix: No evidence of appendicitis. Intraperitoneal space: Unremarkable. No free air. No significant fluid collection. Vasculature: Severe diffuse atherosclerotic calcifications. Lymph nodes: Prominent inguinal and retroperitoneal lymph nodes. For example a right inguinal lymph node measures 3.2 x 1.8 cm (series 9, image 88). A retroperitoneal periaortic lymph node measures 1.3 x 0.9 cm (series 9 image 47). Urinary bladder: Circumferential bladder wall thickening with mild trabeculation which may be secondary to chronic bladder outlet obstruction. Reproductive: Prostatomegaly measuring up to 4.6 cm. Bones/joints: Moderate spondylosis. Soft tissues: Unremarkable. CT/[place] [id number] IMPRESSION: 1. Prominent mediastinal and left supraclavicular lymph nodes. For example there is a 3 cm right paratracheal lymph node. 2. Findings consistent with patient's history of Hodgkin's lymphoma. IMPRESSION: 1. No acute findings within the abdomen or pelvis. 2. Prominent inguinal and retroperitoneal lymph nodes as described above. 3. Prostatomegaly. Circumferential bladder wall thickening with mild trabeculation which may be secondary to chronic bladder outlet obstruction. 4. 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
--- NOTE | 2024-07-05 17:16 | ECG_ITS ---
[facility] Test Date: 2024-07-05 Pat Name: Jesus Farias Department: Room: Gender: Male [employer] Manager: : 1940 Requested By: David Juarez Order Number: [id number] [place] MD: Sajan Gilliland M.D. Measurements Intervals [place] Rate: 81 P: 0 [place]: 0 QRS: -5 QRSD: 104 T: 51 QT: 387 QTc: 452 Interpretive Statements ATRIAL FLUTTER LEFT VENTRICULAR HYPERTROPHY AND ST-T CHANGE [VOLTAGE CRITERIA PLUS ST/T ABNORMALITY] Compared to ECG 08/20/2022 13:45:22 Left ventricular hypertrophy now present ST (T wave) deviation now present Sinus bradycardia no longer present Left-axis deviation no longer present Electronically Signed On 07-06-2024 8:04:27 CDT by Sajan Gilliland M.D. [id number]
--- NOTE | 2024-07-05 17:16 | XRR_ITS ---
PROCEDURE INFORMATION: Exam: XR Chest Exam date and time: 07/05/2024 5:27 PM Age: 84 years old Clinical indication: Other: Weakness; Prior surgery; Surgery date: 6+ months; Surgery type: Cabg cardiac stents TECHNIQUE: Imaging protocol: Radiologic exam of the chest. Views: 1 view. COMPARISON: CR XR chest 1V portable [id number] 04/06/2022 7:55 PM FINDINGS: Lungs: Stable fibrosis in the right base. No consolidation. Pleural spaces: Unremarkable. No pleural effusion. No pneumothorax. Heart/Mediastinum: Unremarkable. No cardiomegaly. Bones/joints: Sternal sutures are seen. No acute findings. XR/XR chest 1V portable [id number] IMPRESSION: No acute findings.
[2024-07-05] MEDS: sodium chloride 0.9% 1,000 ML 999 ML IV ×2 (17:32)
--- NOTE | 2024-07-05 17:32 | ED_ITS ---
Documented by User: David Juarez MD 07/05/24 17:35 HPI - Recheck/Abnormal Lab/Rx 2 General: Chief Complaint: Recheck/Abnormal Lab/Rx Stated Complaint: DR sent due to kidney function Time Seen by Provider: 07/05/24 17:17 Source: patient Mode of arrival: ambulatory Limitations: no limitations History of Present Illness: 84-year-old male has a history of Hodgki n's lymphoma he states he has been on chemotherapy for 9 weeks patient states over the last week he has been having severe diarrhea decreased oral intake feeling weak and dehydrated patient's oncologist called and had labs drawn where he had an elevated creatinine of 5 was sent here for dehydration patient states he is also had hypotension at home he denies any fevers denies any vomiting has had nausea. Related Data Home Medications Medication Instructions Recorded Confirmed aspirin 81 mg tablet,delayed 81 mg PO DAILY 08/19/22 04/18/24 release (Adult Aspirin Regimen) carvedilol 12.5 mg tablet 12.5 mg PO BID 08/19/22 04/18/24 ticagrelor 90 mg tablet (Brilinta) 90 mg PO BID 08/19/22 04/18/24 allopurinol 300 mg tablet 150 mg PO DAILY PRN GOUT 08/20/22 04/18/24 doxazosin 1 mg tablet 1 mg PO BEDTIME 08/20/22 04/18/24 ezetimibe 10 mg tablet (Zetia) 5 mg PO DAILY 08/20/22 04/18/24 hydralazine 50 mg tablet 50 mg PO TID 08/20/22 04/18/24 isosorbide mononitrate 30 mg 30 mg PO QPM 08/20/22 04/18/24 tablet,extended release 24 hr lovastatin 20 mg tablet 20 mg PO QPM 08/20/22 04/18/24 omeprazole 20 mg capsule,delayed 20 mg PO DAILY 08/20/22 04/18/24 release cyclobenzaprine 10 mg tablet 5 mg PO DAILY PRN Spasms 11/28/22 04/18/24 furosemide 20 mg tablet 20 mg PO DAILY 12/01/22 04/18/24 evolocumab 140 mg/mL subcutaneous mg SUBCUT 08/19/23 04/18/24 syringe (Repatha Syringe) Previous Rx's Medication Instructions Recorded docusate sodium 100 mg capsule 100 mg PO BID #20 caps 12/01/22 (Colace) hydrocodone 7.5 mg-acetaminophen 1 tab PO Q6H PRN pain #20 tabs 12/01/22 325 mg tablet prednisone 20 mg tablet 20 mg PO DAILY 5 days #5 tabs 11/06/23 Allergies Allergy/AdvReac Type Severity Reaction Status Date / Time clopidogrel [From Plavix] Allergy Severe ALGY-Hives Verified 07/05/24 17:02 Review of Systems 2 Const: Reports: fatigue and malaise; Denies: fever(s) or chills Eyes: Denies: blurry vision or eye discomfort ENMT: Denies: throat pain or dental pain Card: Denies: chest pain Resp: Denies: dyspnea GI: Reports: abdominal pain and diarrhea; Denies: nausea or vomiting Musc: Denies: neck pain or back pain Skin/Breast: Denies: rash Neuro: Denies: headache(s) PFSH ED 2 PFSH: Medical History CLL (chronic lymphocytic leukemia) Scrotal edema wrong pt Osteoporosis History of hypertension GERD (gastroesophageal reflux disease) CAD (coronary artery disease) Anxiety Hiatal hernia ACS (acute coronary syndrome) Surgical History History of right inguinal hernia repair History of femoral hernia repair History of bunionectomy History of excision of mass Excision of subcutaneous mass right neck History of open heart surgery History of appendectomy History of colonoscopy H/O heart artery stent History of quadruple bypass Social History Smoking and tobacco/nicotine status: former use of tobacco/nicotine Physical Exam 2 Const: COMMON NORMALS: patient oriented x3 GENERAL APPEARANCE: ill appearing and frail appearing HENMT: COMMON NORMALS: normocephalic and atraumatic HEAD & SCALP: n ormocephalic and atraumatic Eye: COMMON NORMALS: Equal, round and reactive pupils present and EOMs intact bilaterally PUPIL: Yes Equal, round and reactive pupils present Neck/C-Spine: COMMON NORMALS: full ROM and supple Chest: COMMONS NORMALS: normal inspection of the chest and normal palpation of entire chest wall Resp: COMMON NORMALS: normal respiratory effort, No retractions, No use of accessory muscles and clear to auscultation bilaterally AUSCULTATION: clear to auscultation bilaterally Cardio: COMMON NORMALS: regular rate, regular rhythm and No murmurs present (Cardio) RATE: regular rate RHYTHM: regular rhythm GI: COMMON NORMALS: Normal to inspection, nondistended, normoactive bowel sounds present, Soft to palpation, non-tender and no masses PALPATION: Yes Soft to palpation Extremity: COMMON NORMALS: normal to inspection and full ROM Neuro: COMMON NORMALS: patient oriented x3, moves all extremities and no focal motor deficits Psych: COMMON NORMALS: mental status grossly normal, Normal thought process present and cooperative THOUGHT PROCESS: Normal thought process present Skin: COMMON NORMALS: no rashes or lesions noted and no wounds GENERAL SKIN EXAM: no rashes or lesions noted Course 2 Vital Signs: Vital signs: Vital Signs Pulse Rate 84 07/05/24 19:15 Respiratory Rate 16 07/05/24 19:15 Blood Pressure 109/64 07/05/24 19:15 Pulse Oximetry 99 07/05/24 19:15 Oxygen Delivery Me thod Room Air 07/05/24 18:10 MDM - Recheck/Abnormal Lab/Rx Medical Records I reviewed the patient's medical records. Lab Data I reviewed the patient's lab results. 07/05/24 17:23 07/05/24 17:23 Radiology Impressions Chest/Abdomen/Pelvis CT 07/05/24 17:10 IMPRESSION: 1. Prominent mediastinal and left supraclavicular lymph nodes. For example there is a 3 cm right paratracheal lymph node. 2. Findings consistent with patient's history of Hodgkin's lymphoma. IMPRESSION: 1. No acute findings within the abdomen or pelvis. 2. Prominent inguinal and retroperitoneal lymph nodes as described above. 3. Prostatomegaly. Circumferential bladder wall thickening with mild trabeculation which may be secondary to chronic bladder outlet obstruction. 4. 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 Chest X-Ray 07/05/24 17:16 IMPRESSION: No acute findings. Laboratory Results WBC 5.67 10^3/uL (3.29-11.43) 07/05/24 17:23 RBC 5.00 10^6/uL (3.85-5.65) 07/05/24 17:23 Hgb 15.40 g/dL (11.27-16.99) 07/05/24 17:23 Hct 44.7 % (37-53) 07/05/24 17:23 MCV 89.4 fl (82-101) 07/05/24 17:23 MCH 30.8 pg (27-33) 07/05/24 17:23 MCHC 34.5 g/dL (30-55) 07/05/24 17:23 RDW 17.0 % (12.1-15.1) H 07/05/24 17:23 Plt Count 244 10^3/cmm (157-399) 07/05/24 17:23 MPV 10.4 fL (7.4-10.4) 07/05/24 17:23 Neut % (Auto) 64.3 % 07/05/24 17:23 Lymph % (Auto) 19.4 % 07/05/24 17:23 [place] % (Auto) 7.6 % 07/05/24 17:23 Eos % (Auto) 1.1 % 07/05/24 17:23 Baso % (Auto) 0.4 % 07/05/24 17:23 Neut # (Auto) 3.65 10^3/uL (1.8-7.7) 07/05/24 17:23 Lymph # (Auto) 1.1 10^3/uL (0.8-4.8) 07/05/24 17:23 [place] # (Auto) 0.4 10^3/uL (0.2-0.9) 07/05/24 17:23 Eos # (Auto) 0.1 10^3/uL (0.0-0.8) 07/05/24 17:23 Baso # (Auto) 0.0 10^3/uL (0.0-0.1) 07/05/24 17:23 Nucleated RBC % (auto) 0 % 07/05/24 17: Nucleated RBCs # 0.0 /100WBC 07/05/24 17:23 Sodium 123 mmol/L (136-145) L 07/05/24 17:23 Potassium 4.2 mmol/L (3.5-5.1) 07/05/24 17:23 Chloride 87 mmol/L (98-107) L 07/05/24 17:23 Carbon Dioxide 14 mmol/L (22-29) L 07/05/24 17:23 Anion Gap 26.2 (5-19) H 07/05/24 17:23 BUN 111 mg/dL (8-23) H* D 07/05/24 17:23 Creatinine 6.3 mg/dL (0.7-1.2) H* 07/05/24 17:23 GFR Calculation Not Reportable 07/05/24 17:23 Glucose 120 mg/dL (65-115) H 07/05/24 17:23 Calculated Osmolality 292 mOsm/kg (285-295) 07/05/24 17:23 Lactic Acid 2.1 mmol/L (0.5-2.2) 07/05/24 17:23 Calcium 8.7 mg/dL (8.5-10.5) 07/05/24 17:23 Magnesium 2.6 mg/dL (1.7-2.3) H 07/05/24 17:23 Total Bilirubin 0.6 mg/dL (0.15-1.2) 07/05/24 17:23 AST 55 U/L (0-40) H 07/05/24 17:23 ALT 72 U/L (0-41) H 07/05/24 17:23 Alkaline Phosphatase 90 U/L (40-130) 07/05/24 17:23 Total Protein 5.8 g/dL (6.6-8.7) L 07/05/24 17:23 Albumin 3.2 g/dL (3.5-5.2) L 07/05/24 17:23 Globulin 2.6 g/dL (1.3-4.6) 07/05/24 17:23 Lipase 133 U/L (13-60) H 07/05/24 17:23 All radiology interpretation(s) finalized by discharge EKG Data EKG 1: I personally reviewed and interpreted this EKG as follows: EKG interpretation date: 07/05/24 EKG interpretation time: 17:24 Interpretation: atrial flutter hr [address] elevation qrs 104 qtc 425 Discharge Plan Discharge Condition: Stable Prescriptions: No Action Brilinta 90 mg tablet 90 mg PO BID Hold Instructions: Resume on 12/04/22. aspirin [Adult Aspirin Regimen] 81 mg tablet,delayed release (DR/EC) 81 mg PO DAILY carvedilol 12.5 mg tablet 12.5 mg PO BID Rx Instructions: must administer with a meal/food Repatha Syringe 140 mg/mL syringe SUBCUT prednisone 20 mg tablet 20 mg PO DAILY 5 Days Qty: 5 0RF hydralazine 50 mg Tablet 50 mg PO TID isosorbide mononitrate 30 mg tablet extended release 24 hr 30 mg PO QPM doxazosin 1 mg Tablet 1 mg PO BEDTIME omeprazole 20 mg Capsule,Delayed Release(Dr/Ec) 20 mg PO DAILY allopurinol 300 mg Tablet 150 mg PO DAILY PRN (Reason: GOUT) lovastatin 20 mg Tablet 20 mg PO QPM ezetimibe [Zetia] 10 mg Tablet 5 mg PO DAILY cyclobenzaprine 10 mg tablet 5 mg PO DAILY PRN (Reason: Spasms) furosemide 20 mg tablet 20 mg PO DAILY hydrocodone-acetaminophen 7.5-325 mg tablet 1 tab PO Q6H PRN (Reason: pain) Qty: 20 0RF Colace 100 mg capsule 100 mg PO BID Qty: 20 0RF Referrals: Rob Barnes [Primary Care Provider] - Coding Level of Care Code ED Remelter for Chg Fwd Documented by User: Jaya Clayton MD 07/05/24 19:32 HPI - Recheck/Abnormal Lab/Rx 2 General: Chief Complaint: Recheck/Abnormal Lab/Rx Stated Complaint: DR sent due to kidney function Time Seen by Provider: 07/05/24 17:17 Related Data Home Medications Medication Instructions Recorded Confirmed aspirin 81 mg tablet,delayed 81 mg PO DAILY 08/19/22 04/18/24 release (Adult Aspirin Regimen) carvedilol 12.5 mg tablet 12.5 mg PO BID 08/19/22 04/18/24 ticagrelor 90 mg tablet (Brilinta) 90 mg PO BID 08/19/22 04/18/24 allopurinol 300 mg tablet 150 mg PO DAILY PRN GOUT 08/20/22 04/18/24 doxazosin 1 mg tablet 1 mg PO BEDTIME 08/20/22 04/18/24 ezetimibe 10 mg tablet (Zetia) 5 mg PO DAILY 08/20/22 04/18/24 hydralazine 50 mg tablet 50 mg PO TID 08/20/22 04/18/24 isosorbide mononitrate 30 mg 30 mg PO QPM 08/20/22 04/18/24 tablet,extended release 24 hr lovastatin 20 mg tablet 20 mg PO QPM 08/20/22 04/18/24 omeprazole 20 mg capsule,delayed 20 mg PO DAILY 08/20/22 04/18/24 release cyclobenzaprine 10 mg tablet 5 mg PO DAILY PRN Spasms 11/28/22 04/18/24 furosemide 20 mg tablet 20 mg PO DAILY 12/01/22 04/18/24 evolocumab 140 mg/mL subcutaneous mg SUBCUT 08/19/23 04/18/24 syringe (Repatha Syringe) Previous Rx's Medication Instructions Recorded docusate sodium 100 mg capsule 100 mg PO BID #20 caps 12/01/22 (Colace) hydrocodone 7.5 mg-acetaminophen 1 tab PO Q6H PRN pain #20 tabs 12/01/22 325 mg tablet prednisone 20 mg tablet 20 mg PO DAILY 5 days #5 tabs 11/06/23 Allergies Allergy/AdvReac Type Severity Reaction Status Date / Time clopidogrel [From Plavix] Allergy Severe ALGY-Hives Verified 07/05/24 17:02 [facility] ED 2 PFSH: Medical History CLL (chronic lymphocytic leukemia) Scrotal edema wrong pt Osteoporosis History of hypertension GERD (gastroesophageal reflux disease) CAD (coronary artery disease) Anxiety Hiatal hernia ACS (acute coronary syndrome) Surgical History History of right inguinal hernia repair History of femoral hernia repair History of bunionectomy History of excision of mass Excision of subcutaneous mass right neck History of open heart surgery History of appendectomy History of colonoscopy H/O heart artery stent History of quadruple bypass Social History Smoking and tobacco/nicotine status: former use of tobacco/nicotine Course 2 Vital Signs: Vital signs: Vital Signs Pulse Rate 84 07/05/24 19:15 Respiratory Rate 16 07/05/24 19:15 Blood Pressure 109/64 07/05/24 19:15 Pulse Oximetry 99 07/05/24 19:15 Oxygen Delivery Me thod Room Air 07/05/24 18:10 MDM - Recheck/Abnormal Lab/Rx Medical Decision Making I assumed care of this patient at shift change. Patient has had diarrhea since last Thursday. He has been getting progressively weak. He presented to the ER today with hypotension. Blood pressure systolic was in the 80s. After fluid bolus blood pressures come up nicely to 109 systolic. Patient has a history of Hodgkin's lymphoma he is on chemotherapy. He is seeing Dr. Boland at [facility]. His CBC today is normal. CMP reveals sodium of 123, bicarb of 14, BUN 111 and a creatinine of 6.3. The last BUN and creatinine we have on him is from 2022 it was normal. Urinalysis is pending. C. difficile is pending. Lactic acid level is 2.1. Chest x-ray was normal. CT scan of the chest abdomen pelvis was read by the radiologist. He does have mediastinal, supraclavicular, inguinal and retroperitoneal lymph nodes consistent with his Hodgkin's lymphoma. No acute abnormalities. I discussed case with Dr. Moctezuma, hospitalist. We will admit the patient. Patient will be transferred to the floor shortly. He is stable. Lab Data 07/05/24 17:23 07/05/24 17:23 Radiology Impressions Chest/Abdomen/Pelvis CT 07/05/24 17:10 IMPRESSION: 1. Prominent mediastinal and left supraclavicular lymph nodes. For example there is a 3 cm right paratracheal lymph node. 2. Findings consistent with patient's history of Hodgkin's lymphoma. IMPRESSION: 1. No acute findings within the abdomen or pelvis. 2. Prominent inguinal and retroperitoneal lymph nodes as described above. 3. Prostatomegaly. Circumferential bladder wall thickening with mild trabeculation which may be secondary to chronic bladder outlet obstruction. 4. 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 Chest X-Ray 07/05/24 17:16 IMPRESSION: No acute findings. Laboratory Results WBC 5.67 10^3/uL (3.29-11.43) 07/05/24 17:23 RBC 5.00 10^6/uL (3.85-5.65) 07/05/24 17:23 Hgb 15.40 g/dL (11.27-16.99) 07/05/24 17:23 Hct 44.7 % (37-53) 07/05/24 17:23 MCV 89.4 fl (82-101) 07/05/24 17:23 MCH 30.8 pg (27-33) 07/05/24 17:23 MCHC 34.5 g/dL (30-55) 07/05/24 17:23 RDW 17.0 % (12.1-15.1) H 07/05/24 17:23 Plt Count 244 10^3/cmm (157-399) 07/05/24 17:23 MPV 10.4 fL (7.4-10.4) 07/05/24 17:23 Neut % (Auto) 64.3 % 07/05/24 17:23 Lymph % (Auto) 19.4 % 07/05/24 17:23 [place] % (Auto) 7.6 % 07/05/24 17:23 Eos % (Auto) 1.1 % 07/05/24 17:23 Baso % (Auto) 0.4 % 07/05/24 17:23 Neut # (Auto) 3.65 10^3/uL (1.8-7.7) 07/05/24 17:23 Lymph # (Auto) 1.1 10^3/uL (0.8-4.8) 07/05/24 17:23 [place] # (Auto) 0.4 10^3/uL (0.2-0.9) 07/05/24 17:23 Eos # (Auto) 0.1 10^3/uL (0.0-0.8) 07/05/24 17:23 Baso # (Auto) 0.0 10^3/uL (0.0-0.1) 07/05/24 17:23 Nucleated RBC % (auto) 0 % 07/05/24 17:23 Nucleated RBCs # 0.0 /100WBC 07/05/24 17:23 Sodium 123 mmol/L (136-145) L 07/05/24 17:23 Potassium 4.2 mmol/L (3.5-5.1) 07/05/24 17:23 Chloride 87 mmol/L (98-107) L 07/05/24 17:23 Carbon Dioxide 14 mmol/L (22-29) L 07/05/24 17:23 Anion Gap 26.2 (5-19) H 07/05/24 17:23 BUN 111 mg/dL (8-23) H* D 07/05/24 17:23 Creatinine 6.3 mg/dL (0.7-1.2) H* 07/05/24 17:23 GFR Calculation Not Reportable 07/05/24 17:23 Glucose 120 mg/dL (65-115) H 07/05/24 17:23 Calculated Osmolality 292 mOsm/kg (285-295) 07/05/24 17:23 Lactic Acid 2.1 mmol/L (0.5-2.2) 07/05/24 17:23 Calcium 8.7 mg/dL (8.5-10.5) 07/05/24 17:23 Magnesium 2.6 mg/dL (1.7-2.3) H 07/05/24 17:23 Total Bilirubin 0.6 mg/dL (0.15-1.2) 07/05/24 17:23 AST 55 U/L (0-40) H 07/05/24 17:23 ALT 72 U/L (0-41) H 07/05/24 17:23 Alkaline Phosphatase 90 U/L (40-130) 07/05/24 17:23 Total Protein 5.8 g/dL (6.6-8.7) L 07/05/24 17:23 Albumin 3.2 g/dL (3.5-5.2) L 07/05/24 17:23 Globulin 2.6 g/dL (1.3-4.6) 07/05/24 17:23 Lipase 133 U/L (13-60) H 07/05/24 17:23 Discharge Plan Discharge Condition: Stable Prescriptions: No Action Brilinta 90 mg tablet 90 mg PO BID Hold Instructions: Resume on 12/04/22. aspirin [Adult Aspirin Regimen] 81 mg tablet,delayed release (DR/EC) 81 mg PO DAILY carvedilol 12.5 mg tablet 12.5 mg PO BID Rx Instructions: must administer with a meal/food Repatha Syringe 140 mg/mL syringe SUBCUT prednisone 20 mg tablet 20 mg PO DAILY 5 Days Qty: 5 0RF hydralazine 50 mg Tablet 50 mg PO TID isosorbide mononitrate 30 mg tablet extended release 24 hr 30 mg PO QPM doxazosin 1 mg Tablet 1 mg PO BEDTIME omeprazole 20 mg Capsule,Delayed Release(Dr/Ec) 20 mg PO DAILY allopurinol 300 mg Tablet 150 mg PO DAILY PRN (Reason: GOUT) lovastatin 20 mg Tablet 20 mg PO QPM ezetimibe [Zetia] 10 mg Tablet 5 mg PO DAILY cyclobenzaprine 10 mg tablet 5 mg PO DAILY PRN (Reason: Spasms) furosemide 20 mg tablet 20 mg PO DAILY hydrocodone-acetaminophen 7.5-325 mg tablet 1 tab PO Q6H PRN (Reason: pain) Qty: 20 0RF Colace 100 mg capsule 100 mg PO BID Qty: 20 0RF Referrals: Rob Barnes [Primary Care Provider] - Coding Level of Care Code ED Remelter for Catie Strong
[2024-07-05 17:47] LABS: Basophils % 0.4 %; Eosinophils # 0.1 10^3/uL (0.0-0.8); Eosinophils % 1.1 %; Hematocrit 44.7 % (37-53); Lymphocytes # 1.1 10^3/uL (0.8-4.8); Lymphocytes % 19.4 %; Mean Corpuscular HGB Conc 34.5 g/dL (30-55); Mean Corpuscular Hemoglobin 30.8 pg (27-33); Mean Corpuscular Volume 89.4 fl (82-101); Mean Platelet Volume 10.4 fL (7.4-10.4); Monocytes # 0.4 10^3/uL (0.2-0.9); Monocytes % 7.6 %; Neutrophils # 3.65 10^3/uL (1.8-7.7); Neutrophils % 64.3 %; Nucleated Red Blood Cells % 0 %; Platelet Count 244 10^3/cmm (157-399); White Blood Count 5.67 10^3/uL (3.29-11.43)
[2024-07-05 18:11] LABS: Alanine Aminotransferase 72 U/L (0-41); Albumin Level 3.2 g/dL (3.5-5.2); Alkaline Phosphatase 90 U/L (40-130); Aspartate Amino Transferase 55 U/L (0-40); Calcium 8.7 mg/dL (8.5-10.5); Carbon Dioxide 14 mmol/L (22-29); Chloride 87 mmol/L (98-107); Globulin 2.6 g/dL (1.3-4.6); Glucose 120 mg/dL (65-115); Lactic Sepsis W/Reflex 2.1 mmol/L (0.5-2.2); Lipase 133 U/L (13-60); Magnesium 2.6 mg/dL (1.7-2.3); Osmolality Calculated 292 mOsm/kg (285-295); Sodium 123 mmol/L (136-145); Total Bilirubin 0.6 mg/dL (0.15-1.2); Total Protein 5.8 g/dL (6.6-8.7)
[2024-07-05 18:22] LABS: Anion Gap 26.2 (5-19); Potassium 4.2 mmol/L (3.5-5.1)
[2024-07-05 18:23] LABS: Blood Urea Nitrogen 111 mg/dL (8-23)
[2024-07-05 18:24] LABS: Creatinine Clr Calc Pharmacy 8.8862
[2024-07-05 18:36] LABS: Slide Review Slide Review Perform
--- NOTE | 2024-07-05 18:51 | PC.NURSE ---
accepted care of the pt at this time
--- NOTE | 2024-07-05 19:15 | PC.NURSE ---
pt is still not able to urinate.
[2024-07-05 19:20] LABS: Reflex Lactate Order REFLEX LACTIC ORDERD
--- NOTE | 2024-07-05 19:44 | PM.HP ---
Providers/Chief Complaint Primary Care Provider: Rob Barnes Chief Complaint: DR jameson due to kidney function History of Present Illness Jesus Farias is a 84 year old male with a past medical history significant for chronic lymphocytic leukemia, hypertension, GERD, coronary artery disease, anxiety, and hiatal hernia who presents to the emergency department with diarrhea and reported abnormal labs. Upon assessment, patient is a somewhat poor historian. Patient reports diarrhea for some time. He is unable to determine how long he has had diarrhea. Denies blood or mucus in his stool. He reports he has a history of Hodgkin's lymphoma and is currently on treatment at [facility]. He cannot recall how long ago his last treatment was. He reportedly got a phone call through his oncologist reporting his creatinine was around 5 recommend he be emergently evaluated. Patient denies any known history of kidney disease. He endorses severe diarrhea for the past at least several days if not weeks. He denies fevers or chills. Denies abdominal pains. He does not think he has been on recent antibiotic treatment. He reports low blood pressures at home. Denies alleviating or aggravating factors. In the emergency department, patient was found to have renal failure and multiple metabolic derangements. Review of Systems Narrative: A complete review of systems was obtained and is negative except as stated in HPI. Medications/Allergies Home Medications Medication Instructions Recorded Confirmed Last Taken Type aspirin 81 mg tablet,delayed 81 mg PO DAILY 08/19/22 04/18/24 11/28/22 History release (Adult Aspirin Regimen) carvedilol 12.5 mg tablet 12.5 mg PO BID 08/19/22 04/18/24 12/01/22 05:30 History ticagrelor 90 mg tablet (Brilinta) 90 mg PO BID 08/19/22 04/18/24 11/26/22 History allopurinol 300 mg tablet 150 mg PO DAILY PRN GOUT 08/20/22 04/18/24 2 Days Ago History ~11/26/22 doxazosin 1 mg tablet 1 mg PO BEDTIME 08/20/22 04/18/24 3 Days Ago History ~11/25/22 ezetimibe 10 mg tablet (Zetia) 5 mg PO DAILY 08/20/22 04/18/24 11/30/22 History hydralazine 50 mg tablet 50 mg PO TID 08/20/22 04/18/2423 05:30 History isosorbide mononitrate 30 mg 30 mg PO QPM 08/20/22 04/18/24 11/30/22 History tablet,extended release 24 hr lovastatin 20 mg tablet 20 mg PO QPM 08/20/22 04/18/24 11/29/22 History omeprazole 20 mg capsule,delayed 20 mg PO DAILY 08/20/22 04/18/24 11/30/22 History release cyclobenzaprine 10 mg tablet 5 mg PO DAILY PRN Spasms 11/28/22 04/18/24 11/29/22 History docusate sodium 100 mg capsule 100 mg PO BID #20 caps 12/01/22 04/18/24 Unknown Rx (Colace) furosemide 20 mg tablet 20 mg PO DAILY 12/01/22 04/18/24 11/30/22 06:00 History hydrocodone 7.5 mg-acetaminophen 1 tab PO Q6H PRN pain #20 tabs 12/01/22 04/18/24 Unknown Rx 325 mg tablet evolocumab 140 mg/mL subcutaneous mg SUBCUT 08/19/23 04/18/24 Unknown History syringe (Repatha Syringe) prednisone 20 mg tablet 20 mg PO DAILY 5 days #5 tabs 11/06/23 04/18/24 Unknown Rx Allergies Allergy/AdvReac Type Severity Reaction Status Date / Time clopidogrel [From Plavix] Allergy Severe ALGY-Hives Verified 07/05/24 17:02 PFSH Acute PFSH: Medical History 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 Callus of foot Olecranon bursitis, right elbow Cellulitis of great toe, right Acquired hammertoes of both feet Ulcer of right foot with fat layer exposed Subcutaneous mass of neck CLL (chronic lymphocytic leukemia) Scrotal edema wrong pt Osteoporosis History of hypertension GERD (gastroesophageal reflux disease) CAD (coronary artery disease) Anxiety Hiatal hernia ACS (acute coronary syndrome) Surgical History History of right inguinal hernia repair History of femoral hernia repair History of bunionectomy History of excision of mass Excision of subcutaneous mass right neck History of open heart surgery History of appendectomy History of colonoscopy H/O heart artery stent History of quadruple bypass Family History Denies family history of Kidney disease Social History Smoking and tobacco/nicotine status: former use of tobacco/nicotine Vitals/I&O/Wt Last Vital Signs Pulse 90 07/05/24 19:40 Resp 20 H 07/05/24 19:40 BP 109/64 07/05/24 19:40 Pulse Ox 100 07/05/24 19:40 O2 Del Method Room Air 07/05/24 18:10 07/05/24 07/05/24 07/05/24 06:59 14:59 22:59 Intake Total 1999 Balance 1999 Weight last 48 hrs Weight 77.111 kg Physical Exam Narrative: General: Patient is awake. Head: Normocephalic. Atraumatic. EOM intact. Dry mucous membranes. Neck: No JVD. Cardiovascular: RRR. No gallops. No murmurs. No peripheral edema. Lungs: Clear to auscultation, no use of accessory muscles, no crackles or wheezes. Skin: No jaundice. No rashes. Abdomen: Normal bowel sounds, abdomen soft and nontender. Genito Urinary: Genital exam not performed since complaints not related. Rectal: Rectal exam not performed since no symptoms indicated blood loss. Extremities: No cyanosis or clubbing. Musculoskeletal: No swollen or erythematous joints. Neurological: Moves all 4 extremities. No myoclonus. Data 07/05/24 17:23 07/05/24 17:23 A&P Assessment and plan (1) Acute renal failure: Admission BUN 111; Cr 6.3 with no recent baseline but patient denies known kidney disease Start IVF hydration with sodium bicarb drip at 125 mL/hr Strict I&O Daily weight Urine electrolytes Consider nephrology consult Obtain outside records from [facility] to see recent labs in a.m. (2) High anion gap metabolic acidosis: HAGMA w/ GI bicarb loss and renal failure Start bicarb drip as above Trend albs (3) Hyponatremia: Hypovolemic hyponatremia 2/2 severe dehydration 2/2 GI illness Start IVF as above Trend sodium level (4) Diarrhea: Presentation c/w severe illness d/t evidence of hypovolemia, advanced age, immunosuppresion, hx of cardiac disease Stool studies ordered Initiate emperic antibiotic therapy with IV levofloxacin (5) Transaminitis: Elevated liver function enzymes suspect related to underlying acute diarrhea illness Avoid hepatotoxins Trend CMP (6) CLL (chronic lymphocytic leukemia): History of CLL and reported Hodgkin lymphoma It appears patient is on treatment for lymphoma but he is a poor historian regarding the details Requests records from [facility] in AM Plan DVT ppx: Heparin Attestations Medical Necessity Statement*: Patient presents with diarrhea illness, found to have acute renal failure with severe electrolyte derrangements with expected hospitalization to cross two midnights for renal support, IVF, further work up and management of diarrhea, and supportive care. Coding Level of Care Code Acute Code for [facility] Fwd Diagnoses Acute renal failure N17.9 High anion gap metabolic acidosis E87.29 Hyponatremia E87.1 Diarrhea R19.7 Transaminitis R74.01 CLL (chronic lymphocytic leukemia) C91.10
[2024-07-05 19:52] LABS: Lactic Acid level (Lactate) 1.1 mmol/L (0.5-2.2)
[2024-07-05 20:30] LABS: C Reactive Protein 70.4 mg/L (0.0-4.9)
[2024-07-05 20:31] LABS: Calcium 8.5 mg/dL (8.5-10.5)
[2024-07-05 20:38] LABS: Parathyroid Hormone 92.1 pg/mL (15-65)
[2024-07-05 20:46] LABS: 25 Hydroxy Vitamin D 32 ng/mL (30-100); Procalcitonin 2.27 ng/mL (0-0.5)
[2024-07-05] MEDS: heparin 5,000 unit/mL INJ 1 mL 5000 UNIT SUBCUT (21:04)
[2024-07-05] MEDS: levofloxacin-dextrose 5 % 500 MG/100 ML PREMIX 100 MG IV (21:04)
[2024-07-05] MEDS: sodium bicarbonate 150 MEQ in dextrose 5% 1,000 ML 125 MEQ IV (21:32)
[2024-07-06] VITALS (11 sets, daily range): BP systolic 104–157; BP diastolic 62–76; PULSE 68–87; RESP 16–19; TEMP 36.5–37; O2SAT 98–100
[2024-07-06] MEDS: oxyCODONE 5 mg IR Tab/Cap PO (01:52)
[2024-07-06] MEDS: sodium bicarbonate 150 MEQ in dextrose 5% 1,000 ML 125 MEQ IV ×3 (05:37→23:30)
[2024-07-06] MEDS: heparin 5,000 unit/mL INJ 1 mL 5000 UNIT SUBCUT ×2 (08:08→20:41)
--- NOTE | 2024-07-06 08:57 | PC.CHAP ---
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 [] Patient/Family/Request visit [] Outpatient visit [] Follow-up visit [] Physician referral [] Code/Alert [x] Routine visit [] Staff referral [] Actively dying [] Patient sleeping [] Family support [] [] Out of room [] Palliative care [] [] Receiving care in room [] Pre-surgical visit [] Trauma [] Long length of stay [] ICU visit [] Other: Relational/Emotional Strength [x] Patient feels connected with others/family/visitors/staff [] Distress [] Loneliness/isolation [] Abandonment Spirituality of Patient [x] Person of Kathrin [] Attends Mormonism of their Kathrin [x] Believes in Prayer [] Reads Bible or Presybeterian materials [] There are Spiritual issues to be addressed Program Paraprofessional Interventions [x] Prayer [x] Active listening [] Non-anxious presence [x] Spiritual/emotional support [] Crisis/trauma care [] Spiritual counseling [] Bereavement support [] Provided bereavement packet [] Provided Bible/devotional materials [] Provided toy/stuffed animal, coloring book to patient or family member [] Provided Communion [] Anointing/[place] [] Salvation [x] Completed spiritual assessment [] Other: Impact on Illness or Injury [] Angry [] Fearful [] Anxious [] Often cries [] Exhaustion [] Unable to work [] Unable to attend synagogue [] Unable to walk/stand [] Unable to read [] Unable to drive [] Unable to eat/drink [] Unable to sleep [] Unable to be with family [] Patient intubated [] Other: Summary Time spent with patient 5 min
--- NOTE | 2024-07-06 09:44 | PC.PHAR ---
pts' wifes phone number is incorrect in the chart-recipient did not appreciate 2 phone calls. Pt's daughter (RN) sets up medications and went over the full list by phone this morning. 07/06/24
[2024-07-06 10:44] LABS: Bilirubin Urine Negative (Negative); Blood Urine Negative (Negative); Glucose Urine UA Negative (Normal); Ketones Urine Negative (Negative); Leukocyte Esterase Urine Negative (Negative); Nitrate Urine Negative (Negative); Protein Urine Trace (Negative); Urine Appearance Clear (CLEAR); Urine Color Yellow (Yellow); Urobilinogen Urine 0.2 mg/dL (Negative)
[2024-07-06 10:49] LABS: Bacteria Urine None Seen /hpf; Hyaline Casts Urine 7.01 /lpf; RBC Urine 0-2 /hpf (0-2); Squamous Epithelial Cell Urine 0-5 /hpf (0-5); WBC Urine 0-5 /hpf (0-5)
[2024-07-06 10:55] LABS: Potassium, Radom Urine 18 mmol/L
[2024-07-06 11:00] LABS: Total Protein, Random Urine 8.6 mg/dL (0.0-20.0)
[2024-07-06 11:10] LABS: Urine Random Chloride > 20 mmol/L; Urine Random Sodium > 20 mmol/L
[2024-07-06 11:43] LABS: Calcium 7.7 mg/dL (8.5-10.5); Carbon Dioxide 18 mmol/L (22-29); Chloride 92 mmol/L (98-107); Creatine Phosphokinase 11 U/L (39-308); Creatinine Clr Calc Pharmacy 9.2272; Glucose 141 mg/dL (65-115); Lactate Dehydrogenase 177 U/L (135-225); Magnesium 2.2 mg/dL (1.7-2.3); Osmolality Calculated 298 mOsm/kg (285-295); Phosphorus 4.4 mg/dL (2.5-4.5); Sodium 128 mmol/L (136-145); Uric Acid 16.4 mg/dL (3.4-7.0)
[2024-07-06 11:49] LABS: Blood Urea Nitrogen 97 mg/dL (8-23)
[2024-07-06 12:08] LABS: Potassium, Radom Urine 18 mmol/L; Urine Creatinine 65 mg/dL (39-259); Urine Protein Random 9 mg/dL
[2024-07-06 12:41] LABS: Urine Random Sodium < 10 mmol/L
[2024-07-06 12:42] LABS: Urine Random Chloride < 10 mmol/L
[2024-07-06 13:13] LABS: Eosinophil Urine No Eosinophils Seen
[2024-07-06] MEDS: potassium chloride ER 20 mEq Tablet 40 MEQ PO (13:58)
--- NOTE | 2024-07-06 14:27 | P.CONIM_ITS ---
Providers/Reason For Consult 2 Consulting Physician/Specialty*: [facility]/Nephrology Reason for Consult*: Acute on CKD Attending Physician: Maximiliano Carranza MD Primary Care Provider: Rob Barnes History of Present Illness History of Present Illness Jesus Farias is a 84 year old male Patient is 84-year-old male with past medical history of Hodgkin's lymphoma, chronic lymphoid Kidney Disease Coronary Artery Disease, Hypertension, GERD Presented to Emergency Department Due To Not Feeling Well and Has Abnormal Labs with PCP Office. Patient complains of having severe diarrhea for the last few days. Decreased p.o. intake per patient and decreased appetite. Home medications included furosemide 20 mg daily,. Denies any NSAID use in the emergency department laboratory data suggested severe ERIC with a creatinine of 6.3 and a BUN of 111, sodium was 123. Vital signs are stable. Review of Systems 2 Narrative: Other review of systems negative Medications/Allergies Home Medications Medication Instructions Recorded Confirmed Last Taken Type aspirin 81 mg tablet,delayed 81 mg PO QPM 08/19/22 07/06/24 07/04/24 History release (Adult Aspirin Regimen) carvedilol 12.5 mg tablet 6.25 mg PO BID 08/19/22 07/06/24 07/05/24 History allopurinol 300 mg tablet 150 mg PO DAILY PRN GOUT 08/20/22 07/06/24 2 Days Ago History ~11/26/22 ezetimibe 10 mg tablet (Zetia) 5 mg PO QAM 08/20/22 07/06/24 07/05/24 History isosorbide mononitrate 30 mg 30 mg PO QAM 08/20/22 07/06/24 07/05/24 History tablet,extended release 24 hr omeprazole 20 mg capsule,delayed 20 mg PO BID 08/20/22 07/06/24 07/05/24 History release furosemide 20 mg tablet 20 mg PO QAM 12/01/22 07/06/24 07/05/24 History evolocumab 140 mg/mL subcutaneous 140 mg SUBCUT .Q21D 08/19/23 07/06/24 Unknown History syringe (Repatha Syringe) acetaminophen 650 mg 650 mg PO QPM 07/06/24 07/06/24 07/04/24 History tablet,extended release acyclovir 400 mg tablet 400 mg PO BID 07/06/24 07/06/24 07/05/24 History ascorbic acid (vitamin C) 500 mg See Rx Instructions .Route .COMPLEX 07/06/24 07/06/24 07/04/24 History tablet (Vitamin C) calcium carbonate 500 mg PO DAILY 07/06/24 07/06/24 07/05/24 History coQ10 (ubiquinol) 100 mg capsule 100 mg PO QPM 07/06/24 07/06/24 07/04/24 History cyclobenzaprine 5 mg tablet 5 mg PO DAILY PRN muscle spasms 07/06/24 07/06/24 Unknown History magnesium 250 mg tablet See Rx Instructions .Route .COMPLEX 07/06/24 07/06/24 07/04/24 History multivitamin 1 tab PO QAM 07/06/24 07/06/24 07/05/24 History nitroglycerin 0.4 mg sublingual 0.4 mg sublingual PRN PRN Chest 07/06/24 07/06/24 Unknown History tablet Pain nitroglycerin 400 mcg/spray 1 spray sublingual Q5M PRN Chest 07/06/24 07/06/24 Unknown History translingual Pain omega 6-aye-rmk-fish oil 1,000 mg 1 cap PO QPM 07/06/24 07/06/24 07/04/24 History (120 mg-180 mg) capsule (Fish Oil) potassium gluconate 595 mg (99 mg) 595 mg PO QAM 07/06/24 07/06/24 07/05/24 History tablet psyllium husk 0.4 gram capsule 1.6 g PO BID 07/06/24 07/06/24 07/05/24 History (Metamucil) sennosides 8.6 mg tablet (Senokot) 17.2 - 34.4 mg PO DAILY PRN 07/06/24 07/06/24 Unknown History Constipation vitamin B complex See Rx Instructions .Route .COMPLEX 07/06/24 07/06/24 07/04/24 History vitamins A,C,O-glpt-nabuwi 4,296 1 cap PO QPM 07/06/24 07/06/24 07/04/24 History mcg-226 mg-90 mg capsule (PreserVision AREDS) Allergies Allergy/AdvReac Type Severity Reaction Status Date / Time clopidogrel [From Plavix] Allergy Severe ALGY-Hives Verified 07/05/24 17:02 Current Medications Generic Name Dose Route Start Last Admin Trade Name Freq PRN Reason Stop Dose Admin Heparin Sodium (Porcine) 5,000 unit 07/05/24 20:41 07/06/24 08:08 Heparin 5,000 Unit/Ml Inj 1 Ml SUBCUT 5,000 unit Q12H KEO Administration Sodium Bicarbonate 150 meq/ 1,150 mls @ 125 mls/hr 07/05/24 20:41 07/06/24 13:57 Dextrose IV 125 mls/hr .Q9H12M KEO Administration Oxycodone HCl 5 mg 07/06/24 01:42 07/06/24 01:52 Oxycodone 5 Mg Ir Tab/Cap PO 5 mg Q4H PRN Administration Moderate to severe pain PFSH Acute 2 PFSH: Medical History 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 Callus of foot Olecranon bursitis, right elbow Cellulitis of great toe, right Acquired hammertoes of both feet Ulcer of right foot with fat layer exposed Subcutaneous mass of neck CLL (chronic lymphocytic leukemia) Scrotal edema wrong pt Osteoporosis History of hypertension GERD (gastroesophageal reflux disease) CAD (coronary artery disease) Anxiety Hiatal hernia ACS (acute coronary syndrome) Surgical History History of right inguinal hernia repair History of femoral hernia repair History of bunionectomy History of excision of mass Excision of subcutaneous mass right neck History of open heart surgery History of appendectomy History of colonoscopy H/O heart artery stent History of quadruple bypass Family History Denies family history of Kidney disease Social History Smoking and tobacco/nicotine status: former use of tobacco/nicotine Vitals/I&O/Wt Last Vital Signs Temp 98.2 F 07/06/24 12:15 Pulse 87 07/06/24 13:06 Resp 16 07/06/24 12:15 BP 157/72 07/06/24 12:15 Pulse Ox 100 07/06/24 12:15 O2 Del Method Room Air 07/06/24 12:15 07/05/24 07/06/24 07/06/24 22:59 06:59 14:59 Intake Total 2219 / 0 1130.417 / 3350.417 1221.667 / 1221.667 Output Total 500 / 500 Balance 2220 / 2220 630.417 / 2850.417 1221.667 / 1221.667 Weight last 48 hrs Weight 65.816 kg Weight 72.575 kg Weight 71.94 kg Weight 77.111 kg Physical Exam 2 Narrative: Appears weak, ill-appearing No distress Room air HEENT neck S1-S2 regular rate and rhythm per report Report No pedal edema Urinary Catheter Management: Fine: Cath Placed During This Visit: yes Urinary Catheter Date of Insertion: 07/06/24 Urinary Catheter Time of Insertion: 11:00 Data 07/05/24 17:23 07/06/24 11:06 Micro: Microbiology 07/06/24 11:09 Blood Culture - Preliminary Blood SPECIMEN COLLECTED 07/06/24 11:06 Blood Culture - Preliminary Blood SPECIMEN COLLECTED A&P Assessment and plan (1) Acute renal failure: Plan 1. Acute on chronic kidney disease: Baseline creatinine was in the mid 1 range about a year ago and now has severe ERIC with a creatinine of 6.3 likely prerenal in the setting of severe diarrhea and poor p.o. intake. -Agree with bicarbonate infusion, and renal function is currently improving, no acute indication for dialysis. Discussed with patient and patient's family at bedside. May require temporary HD if fails to improve. 2. Hyponatremia: Likely hypovolemic, monitor sodium up to 128 today 3. Hypokalemia repleted 4. Anion gap metabolic acidosis: Likely secondary to diarrhea, agree with bicarbonate drip 5. History of CLL Patient evaluated using audiovisual cart. Time spent 40 minutes. Consult Attestations 2 Medical Necessity Statement: PER MEDICINE TEAM Coding Level of Care Code Acute Code for Chg Fwd Diagnoses Acute renal failure N17.9
--- NOTE | 2024-07-06 14:41 | P.PN_ITS ---
Subjective 2 Subjective: Patient was seen this morning, he is alert oriented x 3, following all commands, he tells with the for the last few months he has had a generalized decline, weakness, fatigue, tiredness, no falls, no injuries, denies any fevers, no chills, no cough, denies any flank pain, he does not remember the last time he received any treatment for his Hodgkin's lymphoma, does report a poor appetite, Vitals/I&O/Wt Last Vital Signs Temp 98.2 F 07/06/24 12:15 Pulse 87 07/06/24 13:06 Resp 16 07/06/24 12:15 BP 157/72 07/06/24 12:15 Pulse Ox 100 07/06/24 12:15 O2 Del Method Room Air 07/06/24 12:15 07/05/24 07/06/24 07/06/24 22:59 06:59 14:59 Intake Total 2220 / 2220 1130.417 / 3350.417 1221.667 / 1221.667 Output Total 500 / 500 Balance 2220 / 2220 630.417 / 2850.417 1221.667 / 1221.667 Weight last 48 hrs Weight 65.816 kg Weight 72.575 kg Weight 71.94 kg Weight 77.111 kg Physical Exam 2 Const: COMMON NORMALS: no acute distress and patient oriented x3 N UTRITIONAL APPEARANCE: cachectic, thin and underweight OTHER: Evidence of protein calorie malnutrition, physical deconditioning, muscle loss, bilateral temporal muscle wasting, muscle loss of bilateral arms, bilateral thighs, bilateral fat pad diminished bilateral clavicles, bilateral ribs Resp: COMMON NORMALS: normal respiratory effort, No retractions, No use of accessory muscles and clear to auscultation bilaterally AUSCULTATION: clear to auscultation bilaterally Cardio: COMMON NORMALS: regular rate, regular rhythm, S1 normal heart sound present and S2 normal heart sound present RATE: regular rate RHYTHM: r egular rhythm HEART SOUNDS: S1 normal heart sound present and S2 normal heart sound present GI: COMMON NORMALS: Normal to inspection, nondistended, normoactive bowel sounds present and non-tender Extremity: COMMON NORMALS: no pedal edema Neuro: COMMON NORMALS: patient oriented x3 Psych: COMMON NORMALS: mental status grossly normal Urinary Catheter Management: Fine: Cath Placed During This Visit: yes Urinary Catheter Date of Insertion: 07/06/24 Urinary Catheter Time of Insertion: 11:00 Data 07/05/24 17:23 07/06/24 11:06 Micro: Microbiology 07/06/24 11:09 Blood Culture - Preliminary Blood SPECIMEN COLLECTED 07/06/24 11:06 Blood Culture - Preliminary Blood SPECIMEN COLLECTED A&P Assessment and plan (1) Acute renal failure: Admission BUN 111; Cr 6.3 with no recent baseline but patient denies known kidney disease Currently creatinine 5.7 IVF hydration with sodium bicarb drip at 125 mL/hr Strict I&O Place Fine catheter Daily weight Urine electrolytes nephrology consult Obtain outside records from [facility] to see recent labs in a.m. (2) High anion gap metabolic acidosis: HAGMA w/ GI bicarb loss and renal failure Start bicarb drip as above Trend albs (3) Hyponatremia: Hypovolemic hyponatremia 2/2 severe dehydration 2/2 GI illness Start IVF as above Trend sodium level (4) Diarrhea: Presentation c/w severe illness d/t evidence of hypovolemia, advanced age, immunosuppresion, hx of cardiac disease Stool studies ordered Zosyn (5) Transaminitis: Elevated liver function enzymes suspect related to underlying acute diarrhea illness Avoid hepatotoxins Trend CMP (6) CLL (chronic lymphocytic leukemia): History of CLL and reported Hodgkin lymphoma It appears patient is on treatment for lymphoma but he is a poor historian regarding the details Requests records from [facility] in AM (7) Physical deconditioning: (8) Protein calorie malnutrition: (9) Muscle weakness (generalized): Has evidence of bradycardia, nutrition, physical deconditioning, muscle wasting ? PT OT ? 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
[2024-07-06 14:44] LABS: C.Diff PCR (Lab) NEGATIVE (Negative)
[2024-07-06] MEDS: piperacillin-tazobactam 3.375 GM in sodium chloride 0.9% (plus) 50 ML IV (15:21)
[2024-07-06 16:16] LABS: Calcium 7.4 mg/dL (8.5-10.5); Carbon Dioxide 19 mmol/L (22-29); Chloride 88 mmol/L (98-107); Creatinine Clr Calc Pharmacy 9.3919; Glucose 122 mg/dL (65-115); Osmolality Calculated 287 mOsm/kg (285-295); Sodium 123 mmol/L (136-145)
[2024-07-06 16:18] LABS: Blood Urea Nitrogen 95 mg/dL (8-23)
[2024-07-06] MEDS: trazodone 50 mg Tablet PO (23:57)
[2024-07-07] VITALS (8 sets, daily range): BP systolic 118–161; BP diastolic 66–77; PULSE 64–86; RESP 16–19; TEMP 36.1–36.9; O2SAT 92–99
[2024-07-07] MEDS: piperacillin-tazobactam 3.375 GM in sodium chloride 0.9% (plus) 50 ML IV ×2 (03:37→17:05)
[2024-07-07 04:19] LABS: Basophils % 0.2 %; Eosinophils % 0.5 %; Hematocrit 34.5 % (37-53); Lymphocytes # 1.2 10^3/uL (0.8-4.8); Lymphocytes % 28.4 %; Mean Corpuscular HGB Conc 34.8 g/dL (30-55); Mean Corpuscular Hemoglobin 30.8 pg (27-33); Mean Corpuscular Volume 88.7 fl (82-101); Monocytes # 0.4 10^3/uL (0.2-0.9); Monocytes % 10.4 %; Neutrophils # 2.28 10^3/uL (1.8-7.7); Nucleated Red Blood Cells % 0 %; Platelet Count 197 10^3/cmm (157-399); Red Blood Count 3.89 10^6/uL (3.85-5.65); Red Cell Distribution Width 16.8 % (12.1-15.1); White Blood Count 4.15 10^3/uL (3.29-11.43)
[2024-07-07 04:39] LABS: Alanine Aminotransferase 51 U/L (0-41); Albumin Level 2.4 g/dL (3.5-5.2); Alkaline Phosphatase 67 U/L (40-130); Anion Gap 19.1 (5-19); Aspartate Amino Transferase 55 U/L (0-40); Calcium 7.4 mg/dL (8.5-10.5); Carbon Dioxide 25 mmol/L (22-29); Chloride 91 mmol/L (98-107); Creatinine Clr Calc Pharmacy 10.1144; Glucose 102 mg/dL (65-115); Osmolality Calculated 303 mOsm/kg (285-295); Potassium 3.1 mmol/L (3.5-5.1); Sodium 132 mmol/L (136-145); Total Bilirubin 0.6 mg/dL (0.15-1.2); Total Protein 4.4 g/dL (6.6-8.7)
[2024-07-07 04:47] LABS: Procalcitonin 0.83 ng/mL (0-0.5)
[2024-07-07 04:58] LABS: Erythrocyte Sedimentation Rate 9 mm/hr (0-10)
[2024-07-07 04:59] LABS: C Reactive Protein 53.1 mg/L (0.0-4.9)
[2024-07-07 05:09] LABS: Slide Review Slide Review Perform
[2024-07-07 05:40] LABS: Blood Urea Nitrogen 93 mg/dL (8-23)
[2024-07-07] MEDS: heparin 5,000 unit/mL INJ 1 mL 5000 UNIT SUBCUT ×2 (08:19→21:13)
[2024-07-07] MEDS: sodium bicarbonate 150 MEQ in dextrose 5% 1,000 ML 125 MEQ IV (08:20)
[2024-07-07 08:49] LABS: Cytomegalovirus Antibody (IGM) <30.00 AU/mL
--- NOTE | 2024-07-07 10:45 | PC.NURSE ---
Activity assisted patient from chair to bed. Two assist. Patient tolerated well
--- NOTE | 2024-07-07 13:05 | P.PN_ITS ---
Subjective 2 Subjective: Patient was seen this morning continues to complain of weakness, fatigue, denies any nausea, no vomiting, no lightheadedness, no dizziness Vitals/I&O/Wt Last Vital Signs Temp 97.8 F 07/07/24 12:00 Pulse 64 07/07/24 12:00 Resp 18 07/07/24 12:00 BP 118/77 07/07/24 12:00 Pulse Ox 99 07/07/24 12:00 O2 Del Method Room Air 07/07/24 12:00 07/06/24 07/07/24 07/07/24 22:59 06:59 14:59 Intake Total 570 / 4039.754 2679 / 2941.667 1394.167 / 1394.167 Output Total 900 / 900 400 / 1300 Balance -330 / 891.667 750 / 3557.132 8311.167 / 1394.167 Weight last 48 hrs Weight 65.816 kg Weight 65.816 kg Weight 72.575 kg Weight 71.94 kg Weight 77.111 kg Physical Exam 2 Const: COMMON NORMALS: no acute distress and patient oriented x3 Resp: COMMON NORMALS: normal respiratory effort, No retractions, No use of accessory muscles and clear to auscultation bilaterally AUSCULTATION: clear to auscultation bilaterally Cardio: COMMON NORMALS: regular rate, regular rhythm, S1 normal heart sound present and S2 normal heart sound present RATE: regular rate RHYTHM: r egular rhythm HEART SOUNDS: S1 normal heart sound present and S2 normal heart sound present GI: COMMON NORMALS: Normal to inspection, nondistended, normoactive bowel sounds present and non-tender Extremity: COMMON NORMALS: no pedal edema Neuro: COMMON NORMALS: patient oriented x3 Psych: COMMON NORMALS: mental status grossly normal Urinary Catheter Management: Fine: Cath Placed During This Visit: yes Reason for Continuing Indwelling Catheter: Other Urinary Catheter Date of Insertion: 07/06/24 Urinary Catheter Time of Insertion: 11:00 Data 07/07/24 03:27 07/07/24 03:27 Micro: Microbiology 07/06/24 11:09 Blood Culture - Preliminary Blood NEGATIVE TO DATE 07/06/24 11:06 Blood Culture - Preliminary Blood NEGATIVE TO DATE 07/06/24 15:06 Stool Lactoferrin - Final Stool Occult Blood (FIT) - Final A&P Assessment and plan (1) Acute renal failure: Admission BUN 111; Cr 6.3 with no recent baseline but patient denies known kidney disease Currently creatinine 5.2, BUN 93 IVF hydration with sodium bicarb drip at 125 mL/hr Strict I&O Place Fine catheter Daily weight Urine electrolytes nephrology consult Obtain outside records from [place] to see recent labs in a.m. (2) High anion gap metabolic acidosis: HAGMA w/ GI bicarb loss and renal failure Start bicarb drip as above Trend albs (3) Hyponatremia: Hypovolemic hyponatremia 2/2 severe dehydration 2/2 GI illness Start IVF as above Trend sodium level (4) Diarrhea: Presentation c/w severe illness d/t evidence of hypovolemia, advanced age, immunosuppresion, hx of cardiac disease Stool studies ordered Zosyn (5) Transaminitis: Elevated liver function enzymes suspect related to underlying acute diarrhea illness Avoid hepatotoxins Trend CMP (6) CLL (chronic lymphocytic leukemia): History of CLL and reported Hodgkin lymphoma It appears patient is on treatment for lymphoma but he is a poor historian regarding the details Requests records from [facility] in AM (7) Physical deconditioning: (8) Protein calorie malnutrition: (9) Muscle weakness (generalized): Has evidence of bradycardia, nutrition, physical deconditioning, muscle wasting ? PT OT ? 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: (11) Uremia: Monitor for uremic encephalopathy, monitor for deconditioning Plan DVT ppx: Heparin Plan for today follow nephrology's consultation recommendations, continue sodium bicarb infusion IV for creatinine 5.2, monitor respiratory status closely continue Zosyn Attestations 2 Medical Necessity Statement*: Patient requires hospitalization for ERIC creatinine 5.2, BUN 93, Diagnoses Acute renal failure N17.9 High anion gap metabolic acidosis E87.29 Hyponatremia E87.1 Diarrhea R19.7 Transaminitis R74.01 CLL (chronic lymphocytic leukemia) C91.10 Physical deconditioning R53.81 Protein calorie malnutrition E46 Muscle weakness (generalized) M62.81 Cancer cachexia R64 Uremia N19
--- NOTE | 2024-07-07 15:38 | PC.NURSE ---
IV OUT. WAITING ON ULTRASOUND IV TO BEGIN ABT.
--- NOTE | 2024-07-07 16:41 | P.PN_ITS ---
Subjective 2 Subjective: no ew c/o Medications: Reviewed: Yes Vitals/I&O/Wt Last Vital Signs Temp 97.8 F 07/07/24 12:00 Pulse 64 07/07/24 12:00 Resp 18 07/07/24 12:00 BP 118/77 07/07/24 12:00 Pulse Ox 99 07/07/24 12:00 O2 Del Method Room Air 07/07/24 12:00 07/07/24 07/07/24 07/07/24 06:59 14:59 22:59 Intake Total 1150 / 2941.667 1634.167 / 1634.167 Output Total 400 / 1300 Balance 750 / 5389.126 2114.167 / 1634.167 Weight last 48 hrs Weight 65.816 kg Weight 65.816 kg Weight 72.575 kg Weight 71.94 kg Weight 77.111 kg Physical Exam 2 Narrative: Appears weak, ill-appearing No distress Room air HEENT neck S1-S2 regular rate and rhythm per report Report No pedal edema Urinary Catheter Management: Fine: Cath Placed During This Visit: yes Reason for Continuing Indwelling Catheter: Other Urinary Catheter Date of Insertion: 07/06/24 Urinary Catheter Time of Insertion: 11:00 Data 07/07/24 03:27 07/07/24 03:27 Micro: Microbiology 07/06/24 11:09 Blood Culture - Preliminary Blood NEGATIVE TO DATE 07/06/24 11:06 Blood Culture - Preliminary Blood NEGATIVE TO DATE 07/06/24 15:06 Stool Lactoferrin - Final Stool Occult Blood (FIT) - Final A&P Assessment and plan (1) Acute renal failure: Plan 1. Acute on chronic kidney disease: Baseline creatinine was in the mid 1 range about a year ago and now has severe ERIC with a creatinine of 6.3 likely prerenal in the setting of severe diarrhea and poor p.o. intake. -on bicarbonate infusion, switch to NS - and renal function is currently improving, no acute indication for dialysis. Discussed with patient and patient's family at bedside. May require temporary HD if fails to improve. 2. Hyponatremia: Likely hypovolemic, , improved 3. Hypokalemia repleted 4. Anion gap metabolic acidosis: Likely secondary to diarrhea, agree with bicarbonate drip 5. History of CLL Patient evaluated using audiovisual cart. Time spent 40 minutes. Attestations 2 Medical Necessity Statement*: per medicine Coding Level of Care Code Acute Code for Chg Fwd Diagnoses Acute renal failure N17.9
[2024-07-07] MEDS: sodium chloride 0.9% 1,000 ML 100 ML IV (17:05)
[2024-07-07] MEDS: trazodone 50 mg Tablet PO (22:01)
[2024-07-08] VITALS (10 sets, daily range): BP systolic 111–168; BP diastolic 60–78; PULSE 58–90; RESP 13–20; TEMP 36.3–37.1; O2SAT 92–98; BMI 20.8
[2024-07-08] MEDS: piperacillin-tazobactam 3.375 GM in sodium chloride 0.9% (plus) 50 ML IV ×2 (03:31→15:00)
[2024-07-08] MEDS: sodium chloride 0.9% 1,000 ML 100 ML IV ×3 (03:31→23:27)
[2024-07-08 04:26] LABS: Basophils % 0.3 %; Eosinophils % 0.3 %; Hematocrit 33.9 % (37-53); Lymphocytes # 1.1 10^3/uL (0.8-4.8); Lymphocytes % 29.3 %; Mean Corpuscular HGB Conc 33.9 g/dL (30-55); Mean Corpuscular Hemoglobin 30.9 pg (27-33); Mean Corpuscular Volume 91.1 fl (82-101); Mean Platelet Volume 9.4 fL (7.4-10.4); Monocytes # 0.5 10^3/uL (0.2-0.9); Monocytes % 14.2 %; Neutrophils # 1.91 10^3/uL (1.8-7.7); Neutrophils % 51.3 %; Nucleated Red Blood Cells % 0 %; Platelet Count 193 10^3/cmm (157-399); Red Blood Count 3.72 10^6/uL (3.85-5.65); Red Cell Distribution Width 16.9 % (12.1-15.1); White Blood Count 3.72 10^3/uL (3.29-11.43)
[2024-07-08 04:42] LABS: Alanine Aminotransferase 78 U/L (0-41); Albumin Level 2.1 g/dL (3.5-5.2); Alkaline Phosphatase 67 U/L (40-130); Aspartate Amino Transferase 102 U/L (0-40); Calcium 7.5 mg/dL (8.5-10.5); Carbon Dioxide 31 mmol/L (22-29); Chloride 97 mmol/L (98-107); Creatinine Clr Calc Pharmacy 12.2313; Globulin 1.8 g/dL (1.3-4.6); Glucose 96 mg/dL (65-115); Osmolality Calculated 313 mOsm/kg (285-295); Sodium 139 mmol/L (136-145); Total Bilirubin 0.5 mg/dL (0.15-1.2); Total Protein 3.9 g/dL (6.6-8.7)
[2024-07-08 04:50] LABS: Blood Urea Nitrogen 84 mg/dL (8-23)
[2024-07-08] MEDS: heparin 5,000 unit/mL INJ 1 mL 5000 UNIT SUBCUT ×2 (09:40→19:58)
--- NOTE | 2024-07-08 10:40 | P.PN_ITS ---
Subjective 2 Subjective: no new complaints Medications: Reviewed: Yes Vitals/I&O/Wt Last Vital Signs Temp 98.1 F 07/08/24 08:00 Pulse 58 L 07/08/24 08:00 Resp 16 07/08/24 04:00 BP 155/71 07/08/24 08:00 Pulse Ox 98 07/08/24 08:00 O2 Del Method Room Air 07/08/24 04:00 07/07/24 07/08/24 07/08/24 22:59 06:59 14:59 Intake Total 50 / 6232.587 0856 / 2684.167 50 / 50 Output Total 1000 / 1000 1100 / 2100 Balance -950 / 684.167 -100 / 584.167 50 / 50 Weight last 48 hrs Weight 80.15 kg Weight 65.816 kg Weight 65.816 kg Physical Exam 2 Narrative: Appears weak, ill-appearing No distress Room air HEENT neck S1-S2 regular rate and rhythm per report Report No pedal edema Urinary Catheter Management: Fine: Cath Placed During This Visit: yes Reason for Continuing Indwelling Catheter: Accurate Measurement of Urinary Output in Critically Ill Patients Urinary Catheter Date of Insertion: 07/06/24 Urinary Catheter Time of Insertion: 11:00 Data 07/08/24 04:10 07/08/24 04:10 Micro: Microbiology 07/06/24 11:09 Blood Culture - Preliminary Blood NEGATIVE TO DATE 07/06/24 11:06 Blood Culture - Preliminary Blood NEGATIVE TO DATE 07/06/24 15:06 Stool Lactoferrin - Final Stool Occult Blood (FIT) - Final A&P Assessment and plan (1) Acute renal failure: Plan 1. Acute on chronic kidney disease: Baseline creatinine was in the mid 1 range about a year ago and now has severe ERIC with a creatinine of 6.3 likely prerenal in the setting of severe diarrhea and poor p.o. intake. -s/p bicarbonate infusion, switched to NS - and renal function is currently improving, no acute indication for dialysis. Discussed with patient and patient's family at bedside. 2. Hyponatremia: Likely hypovolemic, , improved 3. Hypokalemia repleted 4. Anion gap metabolic acidosis: Likely secondary to diarrhea, agree with bicarbonate drip 5. History of CLL Patient evaluated using audiovisual cart. Time spent 40 minutes. Attestations 2 Medical Necessity Statement*: per mediicne Coding Level of Care Code Acute Code for Chg Fwd Diagnoses Acute renal failure N17.9
--- NOTE | 2024-07-08 12:14 | P.PN_ITS ---
Subjective 2 Subjective: Patient was seen this morning, does report generalized weakness, no fevers, no chills, no cough, discussed his creatinine improvement, Vitals/I&O/Wt Last Vital Signs Temp 98.2 F 07/08/24 11:54 Pulse 58 L 07/08/24 11:54 Resp 13 07/08/24 11:54 BP 143/66 07/08/24 11:54 Pulse Ox 98 07/08/24 11:54 O2 Del Method Room Air 07/08/24 11:54 07/07/24 07/08/24 07/08/24 22:59 06:59 14:59 Intake Total 50 / 5511.301 2512 / 2684.167 50 / 50 Output Total 1000 / 1000 1100 / 2100 Balance -950 / 684.167 -100 / 584.167 50 / 50 Weight last 48 hrs Weight 80.15 kg Weight 65.816 kg Weight 65.816 kg Physical Exam 2 Const: COMMON NORMALS: no acute distress and patient oriented x3 Resp: COMMON NORMALS: normal respiratory effort, No retractions, No use of accessory muscles and clear to auscultation bilaterally AUSCULTATION: clear to auscultation bilaterally Cardio: COMMON NORMALS: regular rate, regular rhythm, S1 normal heart sound present and S2 normal heart sound present RATE: regular rate RHYTHM: r egular rhythm HEART SOUNDS: S1 normal heart sound present and S2 normal heart sound present GI: COMMON NORMALS: Normal to inspection, nondistended, normoactive bowel sounds present and non-tender Extremity: COMMON NORMALS: no pedal edema Neuro: COMMON NORMALS: patient oriented x3 Psych: COMMON NORMALS: mental status grossly normal Urinary Catheter Management: Fine: Cath Placed During This Visit: yes Reason for Continuing Indwelling Catheter: Accurate Measurement of Urinary Output in Critically Ill Patients Urinary Catheter Date of Insertion: 07/06/24 Urinary Catheter Time of Insertion: 11:00 Data 07/08/24 04:10 07/08/24 04:10 Micro: Microbiology 07/06/24 11:09 Blood Culture - Preliminary Blood NEGATIVE TO DATE 07/06/24 11:06 Blood Culture - Preliminary Blood NEGATIVE TO DATE 07/06/24 15:06 Stool Lactoferrin - Final Stool Occult Blood (FIT) - Final A&P Assessment and plan (1) Acute renal failure: BUN 84, creatinine 4.3 with no recent baseline but patient denies known kidney disease IVF hydration with sodium bicarb drip at 125 mL/hr Urine output [address] Fine catheter Daily weight Urine electrolytes nephrology consult (2) High anion gap metabolic acidosis: HAGMA w/ GI bicarb loss and renal failure Start bicarb drip as above Trend albs (3) Hyponatremia: Hypovolemic hyponatremia 2/2 severe dehydration 2/2 GI illness Start IVF as above Trend sodium level (4) Diarrhea: Presentation c/w severe illness d/t evidence of hypovolemia, advanced age, immunosuppresion, hx of cardiac disease Stool studies ordered Zosyn (5) Transaminitis: Elevated liver function enzymes suspect related to underlying acute diarrhea illness Avoid hepatotoxins Trend CMP (6) CLL (chronic lymphocytic leukemia): History of CLL and reported Hodgkin lymphoma It appears patient is on treatment for lymphoma but he is a poor historian regarding the details Requests records from [facility] in AM (7) Physical deconditioning: (8) Protein calorie malnutrition: (9) Muscle weakness (generalized): Has evidence of bradycardia, nutrition, physical deconditioning, muscle wasting ? PT OT ? 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: (11) Uremia: Monitor for uremic encephalopathy, monitor for deconditioning Plan DVT ppx: Heparin Plan for today creatinine 4.2, BUN 84 continue IV fluids, PT OT replace potassium Attestations 2 Medical Necessity Statement*: Patient requires hospitalization for acute renal failure, Coding Level of Care Code Acute Code for [facility] Fwd Diagnoses Acute renal failure N17.9 High anion gap metabolic acidosis E87.29 Hyponatremia E87.1 Diarrhea R19.7 Transaminitis R74.01 CLL (chronic lymphocytic leukemia) C91.10 Physical deconditioning R53.81 Protein calorie malnutrition E46 Muscle weakness (generalized) M62.81 Cancer cachexia R64 Uremia N19
[2024-07-08] MEDS: potassium chloride ER 20 mEq Tablet 40 MEQ PO (13:19)
--- NOTE | 2024-07-08 14:54 | PC.NURSE ---
[facility] here to consult with patient and family.
[2024-07-08 16:23] LABS: Osmolality Urine 273 mOsm/kg (50-1200)
[2024-07-08] MEDS: aspirin 81 mg EC Tablet PO (16:55)
[2024-07-09] VITALS (10 sets, daily range): BP systolic 149–170; BP diastolic 73–82; PULSE 54–66; RESP 12–20; TEMP 36.4–37.2; O2SAT 97–99
[2024-07-09] MEDS: piperacillin-tazobactam 3.375 GM in sodium chloride 0.9% (plus) 50 ML IV ×2 (02:32→15:57)
[2024-07-09 04:38] LABS: Basophils % 0.2 %; Eosinophils # 0.1 10^3/uL (0.0-0.8); Eosinophils % 2.3 %; Hematocrit 34.6 % (37-53); Lymphocytes # 1.2 10^3/uL (0.8-4.8); Lymphocytes % 26.4 %; Mean Corpuscular HGB Conc 33.5 g/dL (30-55); Mean Corpuscular Hemoglobin 31.8 pg (27-33); Mean Corpuscular Volume 94.8 fl (82-101); Monocytes # 0.8 10^3/uL (0.2-0.9); Monocytes % 17.1 %; Neutrophils # 2.42 10^3/uL (1.8-7.7); Neutrophils % 51.7 %; Nucleated Red Blood Cells % 0 %; Platelet Count 187 10^3/cmm (157-399); Red Blood Count 3.65 10^6/uL (3.85-5.65); Red Cell Distribution Width 17.2 % (12.1-15.1); White Blood Count 4.69 10^3/uL (3.29-11.43)
[2024-07-09 04:56] LABS: Alanine Aminotransferase 111 U/L (0-41); Albumin Level 2.1 g/dL (3.5-5.2); Alkaline Phosphatase 77 U/L (40-130); Anion Gap 12.4 (5-19); Aspartate Amino Transferase 142 U/L (0-40); Blood Urea Nitrogen 75 mg/dL (8-23); Calcium 7.7 mg/dL (8.5-10.5); Carbon Dioxide 27 mmol/L (22-29); Chloride 103 mmol/L (98-107); Creatinine Clr Calc Pharmacy 15.8042; Globulin 1.9 g/dL (1.3-4.6); Glucose 110 mg/dL (65-115); Osmolality Calculated 311 mOsm/kg (285-295); Potassium 3.4 mmol/L (3.5-5.1); Sodium 139 mmol/L (136-145); Total Bilirubin 0.4 mg/dL (0.15-1.2)
[2024-07-09] MEDS: isosorbide mononitrate ER 30 mg Tablet PO (06:05)
--- NOTE | 2024-07-09 06:12 | PM.PN ---
Subjective Subjective: observer gravity prospecting new c/o Medications: Reviewed: Yes Vitals/I&O/Wt Last Vital Signs Temp 98.4 F 07/09/24 04:00 Pulse 58 L 07/09/24 05:19 Resp 20 H 07/09/24 04:00 BP 168/74 07/09/24 04:00 Pulse Ox 97 07/09/24 04:00 O2 Del Method Room Air 07/09/24 04:00 O2 Flow Rate 2 07/08/24 15:56 07/08/24 07/08/24 07/09/24 14:59 22:59 06:59 Intake Total 1031.667 / 1031.667 50 / 7142.814 1671 / 2081.667 Output Total 880 / 880 650 / 1530 Balance 1031.667 / 1031.667 -830 / 201.667 350 / 551.667 Weight last 48 hrs Weight 84.005 kg Weight 80.15 kg Weight 65.816 kg Physical Exam Narrative: Appears weak, No distress Room air HEENT neck S1-S2 regular rate and rhythm per report Report No pedal edema Urinary Catheter Management: Fine: Cath Placed During This Visit: yes Reason for Continuing Indwelling Catheter: Accurate Measurement of Urinary Output in Critically Ill Patients Urinary Catheter Date of Insertion: 07/06/24 Urinary Catheter Time of Insertion: 11:00 Data 07/09/24 04:00 07/09/24 04:00 A&P Assessment and plan (1) Acute renal failure: Plan 1. Acute on chronic kidney disease: Baseline creatinine was in the mid 1 range about a year ago and now has severe ERIC with a creatinine of 6.3 likely prerenal in the setting of severe diarrhea and poor p.o. intake. -s/p bicarbonate infusion, switched to NS - stop today - and renal function is currently improving, no acute indication for dialysis. Discussed with patient and patient's family at bedside. 2. Hyponatremia: Likely hypovolemic, , improved 3. Hypokalemia repleted 4. Anion gap metabolic acidosis: Likely secondary to diarrhea, improved 5. History of CLL Patient evaluated using audiovisual cart. Time spent 40 minutes. Attestations Medical Necessity Statement*: per medicine Coding Level of Care Code Acute Code for [facility] Fwd Diagnoses Acute renal failure N17.9
[2024-07-09] MEDS: calcium carbonate 500 mg Chew Tablet PO (08:10)
[2024-07-09] MEDS: heparin 5,000 unit/mL INJ 1 mL 5000 UNIT SUBCUT ×2 (08:10→21:18)
--- NOTE | 2024-07-09 08:18 | PC.NURSE ---
Patient wanting breakfast this morning however is NPO status. Informed Dr Pineda. Received instruction to perform bedside swallow evaluation. Patient was able to eat a cup of pudding and drink sips of water without any difficulties. Informed MD of results. Waiting further instruction.
--- NOTE | 2024-07-09 12:23 | PC.NURSE ---
Family member requested supplies to bathe patient. Items provided. Family insisted she did not need help at this time. Will continue to monitor.
--- NOTE | 2024-07-09 13:17 | PM.PN ---
Subjective Subjective: Patient was seen this morning, he is alert awake, following all commands, denies any fevers, chills, no cough, we had a discussion about his Vitals/I&O/Wt Last Vital Signs Temp 98.3 F 07/09/24 12:00 Pulse 57 L 07/09/24 12:00 Resp 18 07/09/24 12:00 BP 149/82 07/09/24 12:00 Pulse Ox 99 07/09/24 12:00 O2 Del Method Room Air 07/09/24 07:10 O2 Flow Rate 2 07/08/24 15:56 07/08/24 07/09/24 07/09/24 22:59 06:59 14:59 Intake Total 50 / 9695.366 0442 / 2431.667 360 / 360 Output Total 880 / 880 650 / 1530 Balance -830 / 201.667 700 / 901.667 360 / 360 Weight last 48 hrs Weight 84.005 kg Weight 80.15 kg Weight 65.816 kg Physical Exam Const: COMMON NORMALS: no acute distress and patient oriented x3 Resp: COMMON NORMALS: normal respiratory effort, No retractions, No use of accessory muscles and clear to auscultation bilaterally AUSCULTATION: clear to auscultation bilaterally Cardio: COMMON NORMALS: regular rate, regular rhythm, S1 normal heart sound present and S2 normal heart sound present RATE: regular rate RHYTHM: regular rhythm HEART SOUNDS: S1 normal heart sound present and S2 normal heart sound present GI: COMMON NORMALS: Normal to inspection, nondistended, normoactive bowel sounds present and non-tender Extremity: COMMON NORMALS: no pedal edema Neuro: COMMON NORMALS: patient oriented x3 Psych: COMMON NORMALS: mental status grossly normal Urinary Catheter Management: Fine: Cath Placed During This Visit: yes Reason for Continuing Indwelling Catheter: Accurate Measurement of Urinary Output in Critically Ill Patients Urinary Catheter Date of Insertion: 07/06/24 Urinary Catheter Time of Insertion: 11:00 Data 07/09/24 04:00 07/09/24 04:00 A&P Assessment and plan (1) Acute renal failure: BUN 84, creatinine 3.6ith no recent baseline but patient denies known kidney disease IVF hydration with sodium bicarb drip at 125 mL/hr Urine output [address] Fine catheter Daily weight Urine electrolytes nephrology consult (2) High anion gap metabolic acidosis: HAGMA w/ GI bicarb loss and renal failure Start bicarb drip as above Trend albs (3) Hyponatremia: Hypovolemic hyponatremia 2/2 severe dehydration 2/2 GI illness Start IVF as above Trend sodium level (4) Diarrhea: Presentation c/w severe illness d/t evidence of hypovolemia, advanced age, immunosuppresion, hx of cardiac disease Stool studies ordered Zosyn (5) Transaminitis: Elevated liver function enzymes suspect related to underlying acute diarrhea illness Avoid hepatotoxins Trend CMP (6) CLL (chronic lymphocytic leukemia): History of CLL and reported Hodgkin lymphoma It appears patient is on treatment for lymphoma but he is a poor historian regarding the details Requests records from [facility] in AM (7) Physical deconditioning: (8) Protein calorie malnutrition: (9) Muscle weakness (generalized): Has evidence of bradycardia, nutrition, physical deconditioning, muscle wasting ? PT OT ? 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
[2024-07-09] MEDS: oxyCODONE 5 mg IR Tab/Cap PO ×2 (15:57→21:18)
[2024-07-09] MEDS: potassium chloride ER 20 mEq Tablet 40 MEQ PO (16:06)
[2024-07-09] MEDS: aspirin 81 mg EC Tablet PO (16:06)
[2024-07-09] MEDS: trazodone 50 mg Tablet PO (21:19)
[2024-07-10] VITALS (7 sets, daily range): BP systolic 109–160; BP diastolic 62–80; PULSE 57–75; RESP 16–20; TEMP 36.4–36.9; O2SAT 96–98
[2024-07-10] MEDS: piperacillin-tazobactam 3.375 GM in sodium chloride 0.9% (plus) 50 ML IV (02:10)
[2024-07-10] MEDS: oxyCODONE 5 mg IR Tab/Cap PO ×2 (04:33→08:09)
[2024-07-10] MEDS: isosorbide mononitrate ER 30 mg Tablet PO (05:25)
--- NOTE | 2024-07-10 07:59 | P.PN_ITS ---
Subjective 2 Subjective: no new c/o Medications: Reviewed: Yes Vitals/I&O/Wt Last Vital Signs Temp 98.3 F 07/10/24 07:15 Pulse 69 07/10/24 07:15 Resp 18 07/10/24 04:33 BP 133/75 07/10/24 07:15 Pulse Ox 96 07/10/24 07:15 O2 Del Method Room Air 07/10/24 07:15 O2 Flow Rate 2 07/08/24 15:56 07/09/24 07/10/24 07/10/24 22:59 06:59 14:59 Intake Total 50 / 650 50 / 700 Output Total 1350 / 1350 250 / 1600 Balance -1300 / -700 -200 / -900 Weight last 48 hrs Weight 83.325 kg Weight 84.005 kg Physical Exam 2 Narrative: awake , alert No distress Room air HEENT neck S1-S2 regular rate and rhythm per report Report No pedal edema Urinary Catheter Management: Fine: Cath Placed During This Visit: yes Reason for Continuing Indwelling Catheter: Other Urinary Catheter Date of Insertion: 07/06/24 Urinary Catheter Time of Insertion: 11:00 Data 07/09/24 04:00 07/09/24 04:00 A&P Assessment and plan (1) Acute renal failure: Plan 1. Acute on chronic kidney disease: Baseline creatinine was in the mid 1 range about a year ago and now has severe ERIC with a creatinine of 6.3 likely prerenal in the setting of severe diarrhea and poor p.o. intake. -s/p IVFs - and renal function is currently improving, no acute indication for dialysis. Discussed with patient and patient's family at bedside. 2. Hyponatremia: Likely hypovolemic, , improved 3. Hypokalemia repleted 4. Anion gap metabolic acidosis: Likely secondary to diarrhea, improved 5. History of CLL Patient evaluated using audiovisual cart. Time spent 40 minutes. Attestations 2 Medical Necessity Statement*: per kaitlynn Coding Level of Care Code Acute Code for [facility] Fwd Diagnoses Acute renal failure N17.9
[2024-07-10] MEDS: heparin 5,000 unit/mL INJ 1 mL 5000 UNIT SUBCUT (08:09)
[2024-07-10] MEDS: calcium carbonate 500 mg Chew Tablet PO (08:09)
[2024-07-10 10:21] LABS: Basophils % 0.4 %; Eosinophils # 0.3 10^3/uL (0.0-0.8); Eosinophils % 5.6 %; Hematocrit 37.1 % (37-53); Lymphocytes % 18.3 %; Mean Corpuscular HGB Conc 32.1 g/dL (30-55); Mean Corpuscular Hemoglobin 31.4 pg (27-33); Mean Corpuscular Volume 97.9 fl (82-101); Mean Platelet Volume 8.9 fL (7.4-10.4); Monocytes # 0.8 10^3/uL (0.2-0.9); Neutrophils # 3.25 10^3/uL (1.8-7.7); Neutrophils % 58.3 %; Nucleated Red Blood Cells % 0 %; Platelet Count 142 10^3/cmm (157-399); Red Blood Count 3.79 10^6/uL (3.85-5.65); Red Cell Distribution Width 17.6 % (12.1-15.1); White Blood Count 5.57 10^3/uL (3.29-11.43)
[2024-07-10 10:41] LABS: Alanine Aminotransferase 98 U/L (0-41); Albumin Level 2.1 g/dL (3.5-5.2); Alkaline Phosphatase 80 U/L (40-130); Aspartate Amino Transferase 97 U/L (0-40); Blood Urea Nitrogen 58 mg/dL (8-23); Calcium 7.8 mg/dL (8.5-10.5); Carbon Dioxide 23 mmol/L (22-29); Chloride 103 mmol/L (98-107); Globulin 2.1 g/dL (1.3-4.6); Glucose 162 mg/dL (65-115); Osmolality Calculated 304 mOsm/kg (285-295); Sodium 137 mmol/L (136-145); Total Bilirubin 0.5 mg/dL (0.15-1.2); Total Protein 4.2 g/dL (6.6-8.7)
[2024-07-10 10:45] LABS: Creatinine Clr Calc Pharmacy 19.9474
--- NOTE | 2024-07-10 11:49 | P.DS_ITS ---
Discharge Providers Date of Admission: 07/05/24 20:22 Date of Discharge: July 10, 2024 Attending Provider at Admission: Dario Moctezuma MD Attending Provider at Discharge: Maximiliano Carranza MD Primary Care Provider: Rob Barnes Diagnoses at Discharge Discharge Diagnosis (1) Acute renal failure: Status: Acute Reason for Visit Reason for Visit: DR jameson due to kidney function Hospital Course Hospital Course Jesus Farias is a 84 year old male with a past medical history significant for chronic lymphocytic leukemia, hypertension, GERD, coronary artery disease, anxiety, and hiatal hernia who presents to the emergency department with diarrhea and reported abnormal labs Patient was admitted to [facility] for acute renal failure, likely secondary to dehydration, required IV fluids, nephrology consultation, overall clinically improved creatinine on discharge 2.9, BUN 58, bicarb 23. Patient was advised drink plenty of electrolyte balanced fluids, hydrate well, Hyponatremia, second dehydration, improved Diarrhea, improved with IV hydration, resolved Transaminitis, monitor During his hospitalization patient has significant physical deconditioning, protein calorie malnutrition, muscle weakness, cancer cachexia. Patient has a history of Hodgkin's lymphoma, followed by oncology at [place], his oncologist at [place] has been following his lab work as outpatient. Family tells me that he was in when they discovered his elevated creatinine. I had an extensive family meeting with patient and his and daughter at bedside on 07/10/2024 -We had a discussion about his goals of care, as there is a question on if he wanted to be on hospice -With my discussions with the jesus, he has told me that he does not want to go on hospice -We had an extensive discussion today, at bedside, daughter in law at [facility] -Patient's tells me that the oncologist at [place] has advised him and his that he is not a candidate for any further treatment for his Hodgkin's lymphoma, he is not a candidate for chemotherapy -We discussed his deconditioned state, his physical deconditioning, protein calorie malnutrition, renal failure, cancer cachexia -Discussed continue medical intervention, overall getting him better, to have an eventual follow-up with oncologist to see if he can get better to see if he is a candidate for any other interventions -Other options I discussed was hospice -I discussed the risks and benefits of all options, shared decision making, all parties voiced understanding, all questions answered -After discussing the risks and benefits of all options, patient and family voiced understanding, all questions answered, shared decision making -Patient would like to pursue hospice, home hospice, we discussed the risk and benefits of home hospice, he -Patient and family voiced understanding, all questions answered, agreed to proceed -Will discharge patient on home hospice -Creatinine discharge 2.9, BUN 58, advised patient to hydrate well drink plenty electrolyte balanced fluids Physical Exam Const: COMMON NORMALS: no acute distress and patient oriented x3 Resp: COMMON NORMALS: normal respiratory effort, No retractions, No use of accessory muscles and clear to auscultation bilaterally AUSCULTATION: clear to auscultation bilaterally Cardio: COMMON NORMALS: regular rate, regular rhythm, S1 normal heart sound present and S2 normal heart sound present RATE: regular rate RHYTHM: regular rhythm HEART SOUNDS: S1 normal heart sound present and S2 normal heart sound present GI: COMMON NORMALS: Normal to inspection, nondistended, normoactive bowel sounds present and non-tender Extremity: COMMON NORMALS: no pedal edema Neuro: COMMON NORMALS: patient oriented x3 Psych: COMMON NORMALS: mental status grossly normal Skin: NARRATIVE SKIN EXAM: Patient does have a DTI, over sacrum advised him to continue to repositioning, optimize nutritional status, protein shakes twice daily Urinary Catheter Management: Fine: Cath Placed During This Visit: yes, but has since been removed by the nurse Reason for Continuing Indwelling Catheter: Accurate Measurement of Urinary Output in Critically Ill Patients Urinary Catheter Date of Insertion: 07/06/24 Urinary Catheter Time of Insertion: 11:00 Date Urinary Catheter Removed: 07/10/24 Time Urinary Catheter Discontinued: 11:22 Discharge Data Studies Completed and Pending Completed Studies During Hospitalization Category Date Time Status CT chest abdomen pelvis [[place] [id number] Cat Scan 07/05/24 17:10 Completed ] Stat CXRP [XR chest 1V portable [id number]] Stat Exams 07/05/24 17:16 Completed Pending at discharge Category Date Time Status Blood Culture Stat Lab 07/06/24 11:09 Results OVA and Parasites, Conc and PE Routine Lab 07/05/24 15:06 Received Salmonella / Shigella / Campy Routine Lab 07/05/24 15:06 Received Radiology Impressions Chest/Abdomen/Pelvis CT 07/05/24 17:10 IMPRESSION: 1. Prominent mediastinal and left supraclavicular lymph nodes. For example there is a 3 cm right paratracheal lymph node. 2. Findings consistent with patient's history of Hodgkin's lymphoma. IMPRESSION: 1. No acute findings within the abdomen or pelvis. 2. Prominent inguinal and retroperitoneal lymph nodes as described above. 3. Prostatomegaly. Circumferential bladder wall thickening with mild trabeculation which may be secondary to chronic bladder outlet obstruction. 4. 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 Chest X-Ray 07/05/24 17:16 IMPRESSION: No acute findings. Laboratory Results WBC 5.57 10^3/uL (3.29-11.43) 07/10/24 10:14 RBC 3.79 10^6/uL (3.85-5.65) L 07/10/24 10:14 Hgb 11.90 g/dL (11.27-16.99) 07/10/24 10:14 Hct 37.1 % (37-53) 07/10/24 10:14 MCV 97.9 fl (82-101) 07/10/24 10:14 MCH 31.4 pg (27-33) 07/10/24 10:14 MCHC 32.1 g/dL (30-55) 07/10/24 10:14 RDW 17.6 % (12.1-15.1) H 07/10/24 10:14 Plt Count 142 10^3/cmm (157-399) L 07/10/24 10:14 MPV 8.9 fL (7.4-10.4) 07/10/24 10:14 Neut % (Auto) 58.3 % 07/10/24 10:14 Lymph % (Auto) 18.3 % 07/10/24 10:14 [place] % (Auto) 14.0 % 07/10/24 10:14 Eos % (Auto) 5.6 % 07/10/24 10:14 Baso % (Auto) 0.4 % 07/10/24 10:14 Neut # (Auto) 3.25 10^3/uL (1.8-7.7) 07/10/24 10:14 Lymph # (Auto) 1.0 10^3/uL (0.8-4.8) 07/10/24 10:14 [place] # (Auto) 0.8 10^3/uL (0.2-0.9) 07/10/24 10:14 Eos # (Auto) 0.3 10^3/uL (0.0-0.8) 07/10/24 10:14 Baso # (Auto) 0.0 10^3/uL (0.0-0.1) 07/10/24 10:14 Nucleated RBC % (auto) 0 % 07/10/24 10:14 Nucleated RBCs # 0.0 /100WBC 07/10/24 10:14 ESR 9 mm/hr (0-10) 07/07/24 03:27 Sodium 137 mmol/L (136-145) 07/10/24 10:14 Potassium 4.0 mmol/L (3.5-5.1) 07/10/24 10:14 Chloride 103 mmol/L (98-107) 07/10/24 10:14 Carbon Dioxide 23 mmol/L (22-29) 07/10/24 10:14 Anion Gap 15.0 (5-19) 07/10/24 10:14 BUN 58 mg/dL (8-23) H 07/10/24 10:14 Creatinine 2.9 mg/dL (0.7-1.2) H 07/10/24 10:14 GFR Calculation Not Reportable 07/10/24 10:14 Glucose 162 mg/dL (65-115) H 07/10/24 10:14 Calculated Osmolality 304 mOsm/kg (285-295) H 07/10/24 10:14 Lactic Acid 2.1 mmol/L (0.5-2.2) 07/05/24 17:23 Lactic Acid (Sepsis) 1.1 mmol/L (0.5-2.2) 07/05/24 19:32 Uric Acid 16.4 mg/dL (3.4-7.0) H 07/06/24 11:06 Calcium 7.8 mg/dL (8.5-10.5) L 07/10/24 10:14 Phosphorus 4.4 mg/dL (2.5-4.5) 07/06/24 11:06 Magnesium 2.2 mg/dL (1.7-2.3) 07/06/24 11:06 Total Bilirubin 0.5 mg/dL (0.15-1.2) 07/10/24 10:14 AST 97 U/L (0-40) H 07/10/24 10:14 ALT 98 U/L (0-41) H 07/10/24 10:14 Alkaline Phosphatase 80 U/L (40-130) 07/10/24 10:14 Lactate Dehydrogenase 177 U/L (135-225) 07/06/24 11:06 Creatine Kinase 11 U/L (39-308) L 07/06/24 11:06 C-Reactive Protein 53.1 mg/L (0.0-4.9) H 07/07/24 03:27 Total Protein 4.2 g/dL (6.6-8.7) L 07/10/24 10:14 Albumin 2.1 g/dL (3.5-5.2) L 07/10/24 10:14 Globulin 2.1 g/dL (1.3-4.6) 07/10/24 10:14 Lipase 133 U/L (13-60) H 07/05/24 17:23 25-OH Vitamin D Total 32 ng/mL (30-100) 07/05/24 17:23 Procalcitonin 0.83 ng/mL (0-0.5) H 07/07/24 03:27 PTH Intact 92.1 pg/mL (15-65) H 07/05/24 17:23 Calcium (PTH Intact) 8.5 mg/dL (8.5-10.5) 07/05/24 17:23 Urine Color Yellow (Yellow) 07/06/24 10:11 Urine Appearance Clear (CLEAR) 07/06/24 10:11 Urine pH 5.0 (5-7) 07/06/24 10:11 Ur Specific [place] 1.010 (1.005-1.030) 07/06/24 10:11 Urine Protein Trace (Negative) A 07/06/24 10:11 Urine Glucose (UA) Negative (Normal) 07/06/24 10:11 Urine Ketones Negative (Negative) 07/06/24 10:11 Urine Blood Negative (Negative) 07/06/24 10:11 Urine Nitrate Negative (Negative) 07/06/24 10:11 Urine Bilirubin Negative (Negative) 07/06/24 10:11 Urine Urobilinogen 0.2 mg/dL (Negative) 07/06/24 10:11 Ur Leukocyte Esterase Negative (Negative) 07/06/24 10:11 Urine RBC 0-2 /hpf (0-2) 07/06/24 10:11 Urine WBC 0-5 /hpf (0-5) 07/06/24 10:11 Ur Eosinophil Smear Not Reportable 07/06/24 10:11 Ur Squamous Epith Cells 0-5 /hpf (0-5) 07/06/24 10:11 Amorphous Sediment Not Reportable 07/06/24 10:11 Urine Bacteria None seen /hpf (NONE) 07/06/24 10:11 Hyaline Casts 7.01 /lpf 07/06/24 10:11 Urine Eosinophils No eosinophils seen 07/06/24 10:11 Urine Osmolality 273 mOsm/kg (50-1200) 07/06/24 10:11 U Random Total Protein 9 mg/dL 07/06/24 10:11 Ur Random Sodium < 10 mmol/L 07/06/24 10:11 Ur Random Sodium > 20 mmol/L 07/06/24 10:11 Ur Random Potassium 18 mmol/L 07/06/24 10:11 Ur Random Potassium 18 mmol/L 07/06/24 10:11 Ur Random Chloride < 10 mmol/L 07/06/24 10:11 Ur Random Chloride > 20 mmol/L 07/06/24 10:11 Urine Creatinine 65 mg/dL (39-259) 07/06/24 10:11 Urine Total Protein 8.6 mg/dL (0.0-20.0) 07/06/24 10:11 C. difficile (PCR) Cancelled 07/06/24 15:06 CMV IgG Ab 2.20 U/mL H 07/05/24 17:23 CMV IgM Ab <30.00 AU/mL 07/05/24 17:23 Vitals Last Vital Signs Temp 97.5 F L 07/10/24 11:18 Pulse 75 07/10/24 11:18 Resp 20 H 07/10/24 08:09 BP 109/62 07/10/24 11:18 Pulse Ox 97 07/10/24 11:18 O2 Del Method Room Air 07/10/24 11:18 O2 Flow Rate 2 07/08/24 15:56 Discharge Plan Discharge Patient Disposition: Hospice - Home Condition: Stable Prescriptions: Continued aspirin [Adult Aspirin Regimen] 81 mg tablet,delayed release (DR/EC) 81 mg PO QPM Repatha Syringe 140 mg/mL syringe 140 mg SUBCUT .Q21D Men's Multi-Vitamin Tablet 1 tab PO QAM acetaminophen 650 mg Tablet Extended Release 650 mg PO QPM Calcium 500 500 mg calcium (1,250 mg) Tablet 500 mg PO DAILY Vitamin C 500 mg Tablet See Rx Instructions .ROUTE .COMPLEX Rx Instructions: Take 1 tablet by mouth on Thursday and Thursday. nitroglycerin 400 mcg/spray spray,non-aerosol 1 spray sublingual Q5M PRN (Reason: Chest Pain) nitroglycerin 0.4 mg tablet, sublingual 0.4 mg sublingual PRN PRN (Reason: Chest Pain) vitamin B complex Tablet See Rx Instructions .ROUTE .COMPLEX Rx Instructions: Take 1 tablet by mouth on Thursday and Thursday. magnesium 250 mg Tablet See Rx Instructions .ROUTE .COMPLEX Rx Instructions: Take 1 tablet by mouth on Thursday and Thursday. cyclobenzaprine 5 mg tablet 5 mg PO DAILY PRN (Reason: muscle spasms) PreserVision AREDS 4,296 mcg-226 mg-90 mg Capsule 1 cap PO QPM potassium gluconate 595 mg (99 mg) Tablet 595 mg PO QAM Fish Oil 1,000 mg (120 mg-180 mg) Capsule 1 cap PO QPM coQ10 (ubiquinol) 100 mg Capsule 100 mg PO QPM Metamucil 0.4 gram Capsule 1.6 g PO BID Senokot 8.6 mg Tablet 17.2 - 34.4 mg PO DAILY PRN (Reason: Constipation) isosorbide mononitrate 30 mg tablet extended release 24 hr 30 mg PO QAM omeprazole 20 mg Capsule,Delayed Release(Dr/Ec) 20 mg PO BID ezetimibe [Zetia] 10 mg Tablet 5 mg PO QAM Discontinued carvedilol 12.5 mg tablet 6.25 mg PO BID Rx Instructions: must administer with a meal/food acyclovir 400 mg tablet 400 mg PO BID allopurinol 300 mg Tablet 150 mg PO DAILY PRN (Reason: GOUT) furosemide 20 mg tablet 20 mg PO QAM Discharge Orders: Discharge Order (Routine); Ordered 07/10/24 Ordered By: Maximiliano Carranza Referrals: Rob Barnes [Primary Care Provider] - Discharge Diet: Cardiac Discharge Activity: Resume usual activity Patient Instructions: Opioid Safety Discharge Attestations Time Spent in Discharge Care*: greater than 30 min Quality Metrics Clinical Quality Measures [ No reported AMI, CVA or VTE this stay] Coding Level of Care Code 62905 Total time (in minutes) for Discharge: 45 Diagnoses Acute renal failure N17.9
== END 2024-07-10 13:50 | disposition hospice, home (50) | DRG 683 ==
LOC: ER 18:42 → MEDSURG 20:23
PROVIDERS: Emergency Medicine; Hospitalist; Admitting Provider Internal Medicine; Emergency Provider Emergency Medicine; PCP Family Medicine; Visit Provider Family Medicine
DX: N17.9 Acute kidney failure, unspecified (principal); C91.10 Chronic lymphocytic leukemia of B-cell type not having achieved remission; E87.1 Hypo-osmolality and hyponatremia; E87.20 Acidosis, unspecified; D84.9 Immunodeficiency, unspecified; E46 Unspecified protein-calorie malnutrition; R64 Cachexia; I95.9 Hypotension, unspecified; R19.7 Diarrhea, unspecified; E86.0 Dehydration; M81.0 Age-related osteoporosis without current pathological fracture; K21.9 Gastro-esophageal reflux disease without esophagitis; I25.10 Atherosclerotic heart disease of native coronary artery without angina pectoris; Z95.5 Presence of coronary angioplasty implant and graft; Z95.1 Presence of aortocoronary bypass graft; F41.9 Anxiety disorder, unspecified; Z87.891 Personal history of nicotine dependence; R74.01 Elevation of levels of liver transaminase levels; N18.9 Chronic kidney disease, unspecified; E86.1 Hypovolemia; E87.6 Hypokalemia; Z68.26 Body mass index [BMI] 26.0-26.9, adult; M62.81 Muscle weakness (generalized); L89.156 Pressure-induced deep tissue damage of sacral region; I12.9 Hypertensive chronic kidney disease with stage 1 through stage 4 chronic kidney disease, or unspecified chronic kidney disease
CPT/HCPCS: 36415; 51702; 71045; 71250; 74176; 80048; 80053; 81001; 82274; 82306; 82310; 82436; 82550; 82570; 83605; 83615; 83630; 83690; 83735; 83935; 83970; 84100; 84133; 84145; 84156; 84300; 84550; 85025; 85651; 85999; 86140; 87040; 87045; 87177; 87209; 87427; 87449; 87493; 92610; 93005; 96372; 97110; 97116; 97161; 97167; 97530; 97535; 99285; J1644; J1956; J2543; J7030; J7070; Q3014